=== PATIENT | male | born 1975 ===

== ENCOUNTER 2017-07-03 12:56 | Inpatient (IN) | payer MEDICAID ==
--- NOTE | 2017-07-03 13:41 | C.PDOC ---
History Of Present Illness 41 y/o male presents to the emergency department complaining of requesting detox from heroin. Patient uses IV heroin. Denies any hallucinations, suicidal ideation, or homicidal ideation. Patient last used heroin this morning. Time Seen by Provider: 07/03/17 13:21 Chief Complaint (Nursing): Medical Clearance History Per: Patient History/Exam Limitations: no limitations Onset/Duration Of Symptoms: Days Current Symptoms Are (Timing): Still Present Past Medical History Reviewed: Historical Data, Nursing Documentation, Vital Signs Vital Signs: Last Vital Signs Temp 98.6 F 07/03/17 21:06 Pulse 84 07/03/17 21:06 Resp 18 07/03/17 21:06 BP 115/76 07/03/17 21:06 Pulse Ox 98 07/03/17 21:06 - Medical History Other PMH: Heroin abuse Surgical History: No Surg Hx Family History: States: No Known Family Hx - Social History Hx Alcohol Use: No Hx Substance Use: Yes (IV heroin) - Immunization History Hx Tetanus Toxoid Vaccination: No Hx Influenza Vaccination: No Hx Pneumococcal Vaccination: No Review Of Systems Neurological: Positive for: Other (substance abuse) Psych: Negative for: Suicidal ideation (or homicidal), Other (hallucinations) Physical Exam - Physical Exam Appears: Non-toxic, No Acute Distress Skin: Normal Color, Warm, Dry Head: Atraumatic, Normacephalic Eye(s): bilateral: Normal Inspection, PERRL, EOMI Nose: Normal Oral Mucosa: Moist Neck: Normal ROM, Supple Chest: Symmetrical Cardiovascular: Rhythm Regular Respiratory: Normal Breath Sounds, No Accessory Muscle Use Gastrointestinal/Abdominal: Normal Exam, Soft, No Tenderness Extremity: Bilateral: Atraumatic, Normal Color And Temperature, Normal ROM Neurological/Psych: Oriented x3, Normal Speech ED Course And Treatment - Laboratory Results Result Diagrams: 07/03/17 13:40 07/03/17 13:40 O2 Sat by Pulse Oximetry: 98 (RA) Pulse Ox Interpretation: Normal Medical Decision Making Medical Decision Making: Initial Impression: Substance abuse Time: 13:21 Initial Plan: Alcohol serum Urine drug screen CMP CBC Urinalysis Will 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 Otherwise labs are wnl. 14:53 Spoke with crisis, patient will be admitted inpatient to Dr. Carlos for detox. Disposition Discussed With : Romie Carlos Counseled Patient/Family Regarding: Studies Performed, Diagnosis - Disposition Disposition: HOSPITALIZED Disposition Time: 14:54 Condition: FAIR Forms: [facility] (Slovak) - Clinical Impression Clinical Impression: Drug abuse - Scribe Statement The provider has reviewed the documentation as recorded by the Scribe (Emma Sorto) Provider Attestation: All medical record entries made by the Scribe were at my direction and personally dictated by me. I have reviewed the chart and agree that the record accurately reflects my personal performance of the history, physical exam, medical decision making, and the department course for this patient. I have also personally directed, reviewed, and agree with the discharge instructions and disposition.
[2017-07-03 13:47] LABS: BASO # 0.1 K/uL (0.0-0.2); BASO % 1.1 % (0.0-2.0); EOS % 0.1 % (0.0-4.0); LYMPH # 1.2 K/uL (1.0-4.3); LYMPH % 17.8 % (20.0-40.0); MEAN CORPUSCULAR HEMOGLOBIN 29.8 pg (27.0-31.0); MEAN CORPUSCULAR HGB CONC 34.3 g/dL (33.0-37.0); MEAN PLATELET VOLUME 8.3 fL (7.2-11.7); MONO # 0.5 K/uL (0.0-0.8); MONO % 6.6 % (0.0-10.0); NEUT # 5.1 K/uL (1.8-7.0); NEUT % 74.4 % (50.0-75.0); NRBC % 0.1 % (0.0-2.0); RBC 4.71 Mil/uL (4.40-5.90); RED CELL DISTRIBUTION WIDTH 14.3 % (11.5-14.5); WHITE BLOOD COUNT 6.9 K/uL (4.8-10.8)
[2017-07-03 13:58] LABS: ALB/GLOB RATIO 0.9 (1.0-2.1); ALBUMIN 4.2 g/dL (3.5-5.0); ALT/SGPT 128 U/L (21-72); AST/SGOT 142 U/L (17-59); BLOOD UREA NITROGEN 10 mg/dL (9-20); CALCIUM 9.5 mg/dl (8.6-10.4); GFR AFRICAN-AMERICAN > 60; GFR NON-AFRICAN AMERICAN > 60
[2017-07-03 14:07] LABS: URINE BACTERIA RARE (<OCC); URINE BILIRUBIN 1+ (NEGATIVE); URINE BLOOD NEGATIVE (NEGATIVE); URINE CLARITY Hazy (Clear); URINE COLOR Amber (YELLOW); URINE GLUCOSE (UA) NORMAL (Normal); URINE LEUKOCYTE ESTERASE NEG Leu/uL (Negative); URINE PROTEIN 1+ mg/dL (NEGATIVE)
[2017-07-03 14:10] LABS: BARBITURATES, UR NEGATIVE (NEGATIVE); PHENCYCLIDINE, UR NEGATIVE (NEGATIVE)
[2017-07-03 14:27] LABS: BENZODIAZEPINES, UR POSITIVE (NEGATIVE); OPIATES, UR POSITIVE (NEGATIVE)
--- NOTE | 2017-07-03 15:33 | PCM.BM ---
<Eusebia Vega - Last Filed: 07/03/17 15:33> Treatment Plan Problems - Problems identified on initial assessmt potiential for opiate withdrawal Date Initiated: 07/03/17 Time Initiated: 15:33 Assessment reference: NA Status: Active - Milieu Protocol Maintain good personal hygiene: daily Encourage regular showers, daily Remind patient to perform daily oral care, daily Assist patient to perform ADL's Maintain personal safety: every shift Educate patient to report safety concerns to staff, every shift Monitor environment for contraband/sharps Medication safety: Monitor for expected outcome, potential side effects: every shift, Assess barriers to learning: every shift, Assess readiness for medication education: every shift <Romie Carlos - Last Filed: 07/04/17 17:56> - Diagnosis (1) Opioid use disorder, severe, dependence Status: Acute Interventions: 07/04/17 17:56 * Assess 7x/week regarding severity of withdrawal * Educate regarding risks, benefits, side effects and alternatives of medications * Use Motivational Interviewing for abstinence * Use CBT for relapse prevention * Medication management for withdrawal symptoms * Encourage medication assisted treatment *
[2017-07-03] MEDS ORDERED: Aluminum Hydroxide/Magnesium Hydroxide Susp (30 mL) PO PRN (16:48)
--- NOTE | 2017-07-04 13:32 | PCM.PSYCH ---
Initial Psychiatric Evaluation - Initial Psychiatric Evaluation Type of Admission: Voluntary Legal Status: Capacity Chief Complaint (in patient's own words): "I'm here for detox" History of Present Illness and Precipitating Events: HPI: 41 y.o. M, single, with 2 children (9 yo & 10 yo), unemployed, on medicaid, currently living alone in a rented apartment, who presented to the ED last night requesting detox for heroin. He reports a >20 year history of heroin use. Patient estimates his use at 10 bags IV/day. Last used yesterday morning. His longest period of sobriety was 5 years and his most recent relapse occurred 15 months ago. Patient also admits to using Xanax on occasion (1 bar/use) and tobacco (1ppd). Denies use of marijuana, PCP, LSD, MDMA or other substances. At this time, patient reports feelings of sweats, chills, and occasional abdominal pain. Denies any nausea, vomiting, diarrhea, rhinorrhea, congestion or tremors. Denies any prior seizure, or overdoses. He does not have any specific plan following discharge but is interested in a long-term work program. Detox Hx: 2x before in [place] [facility] Hx: 1x before in [place] [facility] Hx: "Hepatitis" Medications: Denies Psych Hx: Anxiety and depression Fam Hx: denies Legal: denies Current Medications: Active Medications Generic Name Dose Route Start Last Admin Trade Name Freq PRN Reason Stop Dose Admin Al Hydrox/Mg Hydrox/Simethicone 30 ml 07/03/17 16:48 Maalox 30 Ml PO TID PRN Indigestion / Heartburn Clonidine HCl 0.1 mg 07/03/17 16:48 Catapres PO Q8 PRN COWS Score More or Equal to 5 Hydroxyzine HCl 50 mg 07/03/17 16:50 07/04/17 04:32 Atarax PO 50 mg Q6H PRN Administration Anxiety Ibuprofen 600 mg 07/03/17 16:50 Motrin Tab PO Q6H PRN Pain, moderate (4-7) Loperamide HCl 2 mg 07/03/17 16:48 Imodium PO Q8 PRN Diarrhea Methadone HCl 10 mg 07/05/17 10:00 Methadone PO 07/09/17 09:59 Q24H ERIKA Taper Nicotine 1 patch 03/07/18 10:15 07/04/17 10:59 Nicoderm Cq TD 1 patch DAILY ERIKA Administration Ondansetron HCl 4 mg 07/03/17 16:48 Zofran Tab PO Q8 PRN Nausea/Vomiting Trazodone HCl 100 mg 07/03/17 16:50 07/03/17 21:43 Desyrel PO 100 mg HS PRN Administration Insomnia Past Psychiatric History - Past Psychiatric History History of ETOH/Drug Use: (+) heroin, xanax Pertinent Medical Hx (Current Medical&Sleep Prob, Allergies): Allergies Allergy/AdvReac Type Severity Reaction Status Date / Time No Known Allergies Allergy Unverified 07/03/17 13:19 No Known Home Med 07/03/17 Review of Systems - Constitutional Constitutional: Chills, Sweats - EENT Nose/Mouth/Throat: absent: Nasal Congestion, Nasal Discharge - Gastrointestinal Gastrointestinal: Abdominal Pain - Neurological Neurological: absent: Syncope, Tremor, Weakness - Psychiatric Psychiatric: absent: Hallucinations, Homicidal Ideation, Suicidal Ideation Mental Status Examination - Affect Affect: Broad - Motor Activity Motor Activity: Calm - Reliability in Providing Information Reliability in Providing Information: Fair - Speech Speech: Organized - Mood Mood: Neutral - Formal Thought Process Formal Thought Process: No Impairment - Obsessions/Compulsions Obsessions: No Compulsions: No - Cognitive Functions Orientation: Person, Place, Situation, Time Attention/Concentration: Attentive Estimate of Intelligence: Average Judgement: Intact, as evidence by: Insight regarding need for hospitalization Memory: Recent intact, as evidence by: Ability to recall events of the day, Remote intact, as evidenced by: Abilit to recall sig. life events - Risk Risk: Seizure, Withdrawal, Diminished functioning - Strength & Assets Inventory Strength & Assets Inventory: Employment history - Limitations Limitations: Living alone DSM 5 DX - DSM 5 DSM 5 Diagnosis: Opioid use d/o Opioid withdrawal - Recommended/Plan of Treatment Treatment Recommendations and Plan of Treatment: Plan for EVELYN intake Methadone detox Gabapentin for augmentation As needed medications All risks, benefits and alternatives of the meds discussed, and the pt agreed and understood. Attend groups and activities Supportive therapy and psychoeducation MT for abstinence CBT for relapse prevention Encourage MAT Refer to rehab or IOP, and self-help groups Smoking cessation with MT Nicotine patch 34 min Projected ELOS: 4-5 days Prognosis: Good with treatment Discharge Plan and Discharge Criteria: Rehab and MAT - Smoking Cessation Smoking Cessation Initiated: Yes
--- NOTE | 2017-07-05 11:57 | PCM.PYCHPN ---
Psychiatric Progress Note - Psychiatric Progress Note Patient seen today, length of contact: 16 min Patient Chief Complaint: "I couldn't sleep well" Problems Identified/Issues Discussed: The pt is seen, chart reviewed, case discussed with staff. The pt is compliant with medications and reports no side-effects. Symptoms are improving but needs more time to stabilize. After care discussed, support and psychoeducation given. Medication Change: Yes (detox changes daily, add seroquel) Medical Record Reviewed: Yes Mental Status Examination - Cognitive Function Orientation: Person, Place, Situation, Time Memory: Intact Attention: WNL Concentration: WNL Association: WNL Fund of Knowledge: WNL - Mood Mood: Neutral - Affect Affect: Constricted - Speech Speech: Appropriate - Formal Thought Process Formal Thought Process: No Impairment - Suicidal Ideation Suicidal Ideation: No - Homicidal Ideation Homicidal Ideation: No Goal/Treatment Plan - Goal/Treatment Plan Need for Continued Stay: Discharge may exacerbated symptoms, Severe functional impairment Progress Toward Problem(s) and Goals/Treatment Plan: Methadone detox Gabapentin for augmentation As needed medications All risks, benefits and alternatives of the meds discussed, and the pt agreed and understood. Attend groups and activities Supportive therapy and psychoeducation MT for abstinence CBT for relapse prevention Encourage MAT Refer to rehab or IOP, and self-help groups Smoking cessation with MT Nicotine patch
[2017-07-05 12:10] LABS: HEPATITIS B SURFACE AG Negative (NEGATIVE)
[2017-07-05 12:16] LABS: HEPATITIS A IGM NEGATIVE (NEGATIVE); HEPATITIS B CORE AB NEGATIVE (NEGATIVE)
[2017-07-05 13:52] LABS: HEPATITIS C ANTIBODY REACTIVE (NEGATIVE)
--- NOTE | 2017-07-06 12:14 | PCM.PYCHPN ---
Psychiatric Progress Note - Psychiatric Progress Note Patient seen today, length of contact: 16 min Patient Chief Complaint: "I am OK" Problems Identified/Issues Discussed: The pt is seen, chart reviewed, case discussed with staff. Support given, CBT and VA used briefly No new symptoms reported, improving slowly and needs more time No SEs from medications, risks discussed. After care discussed Hep C discussed, Hep B vax recommended Medication Change: Yes (detox changes daily, add seroquel) Medical Record Reviewed: Yes Mental Status Examination - Cognitive Function Orientation: Person, Place, Situation, Time Memory: Intact Attention: WNL Concentration: WNL Association: WNL Fund of Knowledge: WNL - Mood Mood: Neutral - Affect Affect: Constricted - Speech Speech: Appropriate - Formal Thought Process Formal Thought Process: No Impairment - Suicidal Ideation Suicidal Ideation: No - Homicidal Ideation Homicidal Ideation: No Goal/Treatment Plan - Goal/Treatment Plan Need for Continued Stay: Discharge may exacerbated symptoms, Severe functional impairment Progress Toward Problem(s) and Goals/Treatment Plan: Methadone detox Gabapentin for augmentation As needed medications All risks, benefits and alternatives of the meds discussed, and the pt agreed and understood. Attend groups and activities Supportive therapy and psychoeducation VA for abstinence CBT for relapse prevention Encourage MAT Refer to rehab or IOP, and self-help groups Smoking cessation with VA Nicotine patch Estimated Date of D/C: 07/09/17
[2017-07-08 17:12] VITALS: RESP 18
--- NOTE | 2017-07-08 23:43 | PCM.PYCHPN ---
Psychiatric Progress Note - Psychiatric Progress Note Patient seen today, length of contact: 16 min Patient Chief Complaint: I FEEL GOOD I WANT TO GO TO THE [facility] IN [place] Problems Identified/Issues Discussed: [employer] MANAGEMENT OF [employer]- [employer] Medical Problems: NOTHING ACUTE Diagnostic Results: REVIEWED Medication Change: Yes (METHADONE TAPER) Medical Record Reviewed: Yes Mental Status Examination - Cognitive Function Orientation: Person, Place, Situation, Time Memory: Intact Attention: WNL Association: WN Fund of Knowledge: WNL - Mood Mood: Neutral - Affect Affect: Blunted - Speech Speech: Appropriate - Formal Thought Process Formal Thought Process: No Impairment - Suicidal Ideation Suicidal Ideation: No - Homicidal Ideation Homicidal Ideation: No Goal/Treatment Plan - Goal/Treatment Plan Need for Continued Stay: Discharge may exacerbated symptoms, Severe functional impairment Progress Toward Problem(s) and Goals/Treatment Plan: OPIOID WITHDRAWAL METHADONE TAPER OPIOID USE DISORDER SEVERE [facility] CBT GROUP MILIEU AND RECREATIONAL THERAPY SUPPORTIVE PSYCHOTHERAPY Estimated Date of D/C: 07/09/17 - Smoking Cessation Smoking Cessation Initiated: No
--- NOTE | 2017-07-08 23:50 | PCM.PYCHPN ---
Psychiatric Progress Note - Psychiatric Progress Note Patient seen today, length of contact: 16 min Patient Chief Complaint: I WANT TO STAY [place] FOR MYSELF Problems Identified/Issues Discussed: POST ACUTE WITHDRAWAL SYNDROME Medical Problems: NOTHING ACUTE Diagnostic Results: REVIEWED Medical Record Reviewed: Yes Mental Status Examination - Cognitive Function Orientation: Person, Place, Situation, Time Memory: Intact Attention: WNL Concentration: WNL Association: WNL Fund of Knowledge: WNL - Mood Mood: Neutral - Affect Affect: Blunted - Speech Speech: Appropriate - Formal Thought Process Formal Thought Process: No Impairment - Suicidal Ideation Suicidal Ideation: No - Homicidal Ideation Homicidal Ideation: No Goal/Treatment Plan - Goal/Treatment Plan Need for Continued Stay: Discharge may exacerbated symptoms, Severe functional impairment Progress Toward Problem(s) and Goals/Treatment Plan: OPIOID WITHDRAWAL METHADONE TAPER OPIOID USE DISORDER [facility] [place] CBT GROUP MILIEU RECREATIONAL THERAPY SUPPORTIVE PSYCHOTHERAPY Estimated Date of D/C: 07/09/17 - Smoking Cessation Smoking Cessation Initiated: No
--- NOTE | 2017-07-09 08:49 | PCM.PYCHDC ---
Mental Status Examination - Mental Status Examination Orientation: Person, Place, Situation, Time Memory: Intact Mood: Neutral Affect: Broad Speech: Appropriate Attention: WNL Concentration: WNL Language: Word Retrieval Association: WNL Fund of Knowledge: WNL Formal Thought Process: No Impairment Suicidal Ideation: No Current Homicidal Ideation?: No Discharge Summary - Discharge Note Reason for Hospitalization: Detox Consultations:: List each consultation separately and include: 1. Reason for request. 2. Findings. 3. Follow-up Summary of Hospital Course include:: 1. Description of specific treatment plan utilized for patients during their course of treatmen. 2. Summarize the time- course for resolution of acute symptoms and/or regressed behaviors. 3. Describe issues identified and worked on during hospitalization. 4. Describe medication utilized. 5. Describe medical problems identified and treated. 6. Reassessment of suicide risk Summary of Hospital Course: On admission 41 y.o. M, single, with 2 children (9 yo & 10 yo), unemployed, on medicaid, currently living alone in a rented apartment, who presented to the ED last night requesting detox for heroin. He reports a >20 year history of heroin use. Patient estimates his use at 10 bags IV/day. Last used yesterday morning. His longest period of sobriety was 5 years and his most recent relapse occurred 15 months ago. Patient also admits to using Xanax on occasion (1 bar/use) and tobacco (1ppd). Denies use of marijuana, PCP, LSD, MDMA or other substances. At this time, patient reports feelings of sweats, chills, and occasional abdominal pain. Denies any nausea, vomiting, diarrhea, rhinorrhea, congestion or tremors. Denies any prior seizure, or overdoses. He does not have any specific plan following discharge but is interested in a long- term work program. Hospital course: The pt was admitted and started on treatment with psychotherapy, support, psychoeducation and medications. NC and CBT used. The pt attended groups and activities, as well as milieu therapy. All the risks and benefits of medications are discussed and the patient understood and agreed. The pt improved with the treatments provided. After care discussed with the patient. He went to [facility] in [place]. - Diagnosis (1) Opioid use disorder, severe, dependence Status: Acute - Final Diagnosis (DSM 5) Condition upon Discharge: IMPROVED DSM 5: Opioid use disorder Opioid withdrawal Disposition: REHAB FACILITY/REHAB UNIT Follow-up Treatment Plan: Follow after care plan as discussed. Use relapse prevention skills Return to ER or call 911 if suicidal, homicidal or symptoms relapse. Stay away from stress, alcohol and drugs. See primary doctor regularly and get labs.
[2017-07-09 09:35] VITALS: BP 102/72; PULSE 88; TEMP 98.4; O2SAT 97
== END 2017-07-09 11:30 | disposition home or self-care (01) | DRG 745 ==
LOC: C.ER 12:56 → C.7D 14:53
PROVIDERS: ADMIT Psychiatry & Neurology Psychiatry; ATTEND Psychiatry & Neurology Psychiatry
PROC: HZ2ZZZZ Detoxification Services for Substance Abuse Treatment (ICD-10-PCS; principal; 2017-07-03)
PROC: HZ59ZZZ Individual Psychotherapy for Substance Abuse Treatment, Supportive (ICD-10-PCS; 2017-07-03)
PROC: HZ46ZZZ Group Counseling for Substance Abuse Treatment, Psychoeducation (ICD-10-PCS; 2017-07-03)
PROC: HZ90ZZZ Pharmacotherapy for Substance Abuse Treatment, Nicotine Replacement (ICD-10-PCS; 2017-07-03)
DX: F11.23 Opioid dependence with withdrawal (principal); F17.210 Nicotine dependence, cigarettes, uncomplicated

== ENCOUNTER 2017-09-11 17:59 | Emergency (ER) | payer MEDICAID ==
[2017-09-11 18:32] VITALS: BP 151/107; PULSE 115; RESP 20; TEMP 98.2; O2SAT 96
--- NOTE | 2017-09-11 18:39 | C.PDOC ---
History Of Present Illness 42 y/o male presents to ED requesting heroin detox. Patient reports last used earlier this morning and currently denies SI/HI or any physical complaints at this time. Time Seen by Provider: 09/11/17 18:33 Chief Complaint (Nursing): Substance Abuse History Per: Patient History/Exam Limitations: no limitations Onset/Duration Of Symptoms: Days Current Symptoms Are (Timing): Still Present Suicide/Self Injury Attempted (Context): None Modifying Factor(s): None Past Medical History Reviewed: Historical Data, Nursing Documentation, Vital Signs Vital Signs: Last Vital Signs Temp 98.2 F 09/11/17 18:31 Pulse 115 H 09/11/17 18:31 Resp 20 09/11/17 18:31 BP 151/107 H 09/11/17 18:31 Pulse Ox 96 09/11/17 18:51 - Medical History PMH: No Chronic Diseases Surgical History: No Surg Hx - [facility] Procedures DETOXIFICATION SERVICES FOR SUBSTANCE ABUSE TREATMENT (07/03/17) GROUP INVENTORY SPECIALIST MANAGER FOR SUBSTANCE ABUSE TREATMENT, PSYCHOEDUCATION (07/03/17) INDIV PSYCHOTHERAPY FOR SUBSTANCE ABUSE TREATMENT, SUPPORT (07/03/17) PHARMACOTHERAPY FOR SUBSTANCE ABUSE, NICOTINE REPLACE (07/03/17) Family History: States: No Known Family Hx - Social History Hx Alcohol Use: No Hx Substance Use: Yes - Immunization History Hx Tetanus Toxoid Vaccination: No Hx Influenza Vaccination: Yes Hx Pneumococcal Vaccination: No Review Of Systems Constitutional: Negative for: Fever, Chills Cardiovascular: Negative for: Chest Pain Respiratory: Negative for: Shortness of Breath Gastrointestinal: Negative for: Nausea, Vomiting Skin: Negative for: Rash Psych: Negative for: Anxiety, Suicidal ideation Physical Exam - Physical Exam Appears: Non-toxic, No Acute Distress Skin: Warm, Dry, No Rash Head: Atraumatic, Normacephalic Eye(s): bilateral: Normal Inspection Oral Mucosa: Moist Neck: Normal ROM, Supple Cardiovascular: Rhythm Regular Respiratory: Normal Breath Sounds, No Rales, No Rhonchi, No Wheezing Gastrointestinal/Abdominal: Soft, No Tenderness, No Guarding, No Rebound Extremity: Normal ROM, Capillary Refill (<2 seconds) Neurological/Psych: Oriented x3, Normal Speech, Normal Cognition ED Course And Treatment O2 Sat by Pulse Oximetry: 96 (RA) Pulse Ox Interpretation: Normal Medical Decision Making Medical Decision Making: No detox beds available pt discharged with outpatient list of detox services. Disposition - Disposition Referrals: [facility] [place] [Outside] [facility] [Outside] Disposition: HOME/ ROUTINE Disposition Time: 18:34 Condition: STABLE Additional Instructions: please call ahead for detox bed. return to er with worsening symptoms or concerns. Forms: [employer] (Cypriot) - Clinical Impression Clinical Impression: Drug abuse - Scribe Statement The provider has reviewed the documentation as recorded by the Scribmilton Leiva All medical record entries made by the Jhonyibmilton were at my direction and personally dictated by me. I have reviewed the chart and agree that the record accurately reflects my personal performance of the history, physical exam, medical decision making, and the department course for this patient. I have also personally directed, reviewed, and agree with the discharge instructions and disposition.
== END 2017-09-11 19:07 | disposition home or self-care (01) ==
LOC: C.ER 17:59
DX: F11.10 Opioid abuse, uncomplicated (principal)

== ENCOUNTER 2017-09-12 07:36 | Emergency (ER) | payer MEDICAID ==
[2017-09-12 07:53] VITALS: BP 141/91; PULSE 97; RESP 20; TEMP 98.2; O2SAT 96
--- NOTE | 2017-09-12 08:26 | C.PDOC ---
History Of Present Illness Patient came requesting Detox from heroin. Patient sts he was admitted to Detox here 1 month ago and was then referred to [facility] rehab. Patient sts he relapsed 2 weeks ago and was expelled from Rehab. Patient sts he is using 4 bags per day for the past 2 weeks. Patient denies any other complains, denies suicidal/homicidal ideations. Time Seen by Provider: 09/12/17 07:58 Chief Complaint (Nursing): Substance Abuse Past Medical History Reviewed: Historical Data, Nursing Documentation, Vital Signs Vital Signs: Last Vital Signs Temp 98.2 F 09/12/17 07:49 Pulse 97 H 09/12/17 07:49 Resp 20 09/12/17 07:49 BP 141/91 H 09/12/17 07:49 Pulse Ox 96 09/12/17 08:26 - Medical History PMH: Denies: Diabetes, Hepatitis, HIV, HTN, Seizures, Sexually Transmitted Disease - [facility] Procedures DETOXIFICATION SERVICES FOR SUBSTANCE ABUSE TREATMENT (07/03/17) GROUP ROAD PASSENGER FIRER FOR SUBSTANCE ABUSE TREATMENT, PSYCHOEDUCATION (07/03/17) INDIV PSYCHOTHERAPY FOR SUBSTANCE ABUSE TREATMENT, SUPPORT (07/03/17) PHARMACOTHERAPY FOR SUBSTANCE ABUSE, NICOTINE REPLACE (07/03/17) Family History: States: No Known Family Hx - Social History Hx Alcohol Use: No Hx Substance Use: Yes - Immunization History Hx Tetanus Toxoid Vaccination: No Hx Influenza Vaccination: Yes Hx Pneumococcal Vaccination: No Physical Exam - Physical Exam Appears: Well, Non-toxic Skin: Normal Color Head: Atraumatic, Normacephalic Eye(s): bilateral: Normal Inspection Neck: Normal ROM Chest: Symmetrical, No Tenderness Cardiovascular: Rhythm Regular Back: Normal Inspection Extremity: Normal ROM, No Tenderness Neurological/Psych: Oriented x3, Normal Speech, Normal Cognition ED Course And Treatment O2 Sat by Pulse Oximetry: 96 Progress Note: Patient was seen by Detox coordinator Akua who discussed case with . As per patient is not a candidate for Detox at this time. Referral material for outpatient detox and rehab fascilities were given to the patient. Patient agreed with the plan of discharge and referral. Disposition - Disposition Disposition: HOME/ ROUTINE Disposition Time: 08:25 Condition: STABLE Additional Instructions: Follow with outpatient detox or rehab program as instructed. Return to ED if feel worse. Instructions: Drug Abuse and Drug Addiction (DC) Forms: [employer] (Colombian) - Clinical Impression Clinical Impression: Drug dependence
== END 2017-09-12 08:33 | disposition home or self-care (01) ==
LOC: C.ER 07:36
DX: F19.20 Other psychoactive substance dependence, uncomplicated (principal)

== ENCOUNTER 2017-09-19 10:55 | Inpatient (IN) | payer MEDICAID ==
[2017-09-19 11:56] LABS: BASO # 0.1 K/uL (0.0-0.2); BASO % 1.2 % (0.0-2.0); EOS # 0.1 K/uL (0.0-0.7); EOS % 1.2 % (0.0-4.0); LYMPH # 1.9 K/uL (1.0-4.3); LYMPH % 23.2 % (20.0-40.0); MEAN CELL VOLUME 87.3 fL (80.0-94.0); MEAN CORPUSCULAR HEMOGLOBIN 30.4 pg (27.0-31.0); MEAN CORPUSCULAR HGB CONC 34.8 g/dL (33.0-37.0); MEAN PLATELET VOLUME 8.4 fL (7.2-11.7); MONO # 0.7 K/uL (0.0-0.8); MONO % 8.5 % (0.0-10.0); NEUT # 5.5 K/uL (1.8-7.0); NEUT % 65.9 % (50.0-75.0); NRBC % 0.2 % (0.0-2.0); RBC 4.93 Mil/uL (4.40-5.90); WHITE BLOOD COUNT 8.3 K/uL (4.8-10.8)
--- NOTE | 2017-09-19 12:00 | C.PDOC ---
History Of Present Illness 42 y/o male presents to the ER requesting detox from heroin. Patient states that he uses Heroin IV and he last use was last night. Patient states that he wants to harm himself. Otherwise, patient denies having homicidal ideation and active physical complaints. Time Seen by Provider: 09/19/17 11:08 Chief Complaint (Nursing): Substance Abuse History Per: Patient History/Exam Limitations: no limitations Onset/Duration Of Symptoms: Days Severity: Moderate Past Medical History Reviewed: Historical Data, Nursing Documentation, Vital Signs Vital Signs: Last Vital Signs Temp 98.5 F 09/19/17 11:01 Pulse 123 H 09/19/17 11:01 Resp 20 09/19/17 11:01 BP 157/84 H 09/19/17 11:01 Pulse Ox 99 09/19/17 14:29 - Medical History PMH: Denies: Diabetes, Hepatitis, HIV, HTN, Seizures, Sexually Transmitted Disease Surgical History: No Surg Hx - [facility] DETOXIFICATION SERVICES FOR SUBSTANCE ABUSE TREATMENT (07/03/17) 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 Constitutional: Negative for: Fever, Chills Psych: Positive for: Suicidal ideation Physical Exam - Physical Exam Appears: No Acute Distress Skin: Normal Color, Warm, Dry Head: Atraumatic, Normacephalic Eye(s): bilateral: Normal Inspection Nose: Normal Oral Mucosa: Moist Neck: Supple Chest: Symmetrical Cardiovascular: Rhythm Regular Respiratory: Normal Breath Sounds, No Rales, No Rhonchi, No Wheezing Gastrointestinal/Abdominal: Normal Exam, Soft, No Tenderness Neurological/Psych: Oriented x3, Normal Speech ED Course And Treatment - Laboratory Results Result Diagrams: 09/19/17 11:46 09/19/17 11:46 Lab Interpretation: Normal O2 Sat by Pulse Oximetry: 99 (RA) Pulse Ox Interpretation: Normal Progress Note: 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 admission to Dr Villagran Reassessment Condition: Unchanged - Physician Consult Information Physician Contacted: Garfield Villagran Medical Decision Making Medical Decision Making: Plan: --Labs --UA --1:1 Observation Disposition Discussed With : Garfield Villagran Doctor Will See Patient In The: Hospital - Disposition Disposition: HOSPITALIZED Disposition Time: 12:35 Condition: STABLE Instructions: Depression Forms: [facility] (Yi) - POA Present On Arrival: None - Clinical Impression Clinical Impression: Opioid use disorder, severe, dependence, Depression - 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 - Scribe Statement The provider has reviewed the documentation as recorded by the Sarath Loco Provider Attestation All medical record entries made by the Jhonyibe were at my direction and personally dictated by me. I have reviewed the chart and agree that the record accurately reflects my personal performance of the history, physical exam, medical decision making, and the department course for this patient. I have also personally directed, reviewed, and agree with the discharge instructions and disposition. Decision To Admit - Pt Status Changed To: Hospital Disposition Of: Inpatient - Admit Certification Admit to Inpatient:: After my assessment, the patient will require hospitalization for at least two midnights. This is because of the severity of symptoms shown, intensity of services needed, and/or the medical risk in this patient being treated as an outpatient. - InPatient: Physician Admission Certification: I certify that this patient requires 2 or more midnights of care for the following reason:: Depression. Opioid abuse - . Bed Request Type: Psychiatry Admitting Physician: Garfield Villagran Patient Diagnosis: Opioid use disorder, severe, dependence, Depression
[2017-09-19 12:08] LABS: URINE BILIRUBIN NEGATIVE (NEGATIVE); URINE BLOOD NEGATIVE (NEGATIVE); URINE CLARITY Clear (Clear); URINE COLOR Yellow (YELLOW); URINE GLUCOSE (UA) NORMAL (Normal); URINE LEUKOCYTE ESTERASE NEG Leu/uL (Negative); URINE PROTEIN NEGATIVE (NEGATIVE); URINE UROBILINOGEN NORMAL mg/dL (0.2-1.0)
[2017-09-19 12:19] LABS: ALB/GLOB RATIO 0.9 (1.0-2.1); ALBUMIN 4.1 g/dL (3.5-5.0); ALT/SGPT 124 U/L (21-72); AST/SGOT 83 U/L (17-59); BLOOD UREA NITROGEN 13 mg/dL (9-20); CALCIUM 9.5 mg/dl (8.6-10.4); GFR AFRICAN-AMERICAN > 60; GFR NON-AFRICAN AMERICAN > 60
[2017-09-19 13:22] LABS: BARBITURATES, UR NEGATIVE (NEGATIVE); PHENCYCLIDINE, UR NEGATIVE (NEGATIVE)
[2017-09-19 13:42] LABS: BENZODIAZEPINES, UR POSITIVE (NEGATIVE); OPIATES, UR POSITIVE (NEGATIVE)
[2017-09-19] MEDS ORDERED: Aluminum Hydroxide/Magnesium Hydroxide Susp (30 mL) PO PRN (16:38)
--- NOTE | 2017-09-19 20:31 | PCM.BM ---
Treatment Plan Problems - Problems identified on initial assessmt anxiety Date Initiated: 09/19/17 Time Initiated: Date resolved: 09/19/17 Assessment reference: NA Status: Active Depression Date Initiated: 09/19/17 Time Initiated: Date resolved: 09/19/17 Assessment reference: NA Status: Active Treatment assets and liabiliti Patient Assests: cooperative, insightful, motivated, negotiates basic needs Patient Liabilities: live alone, financial problems, substance abuse - Milieu Protocol Maintain good personal hygiene: daily Encourage regular showers, daily Remind patient to perform daily oral care, daily Assist patient to perform ADL's Conduct patient checks and document Observation sheet: Q15 minutes Maintain personal safety: every shift Educate patient to report safety concerns to staff, every shift Monitor environment for contraband/sharps Medication safety: Monitor for expected outcome, potential side effects: every shift, Assess barriers to learning: every shift, Assess readiness for medication education: every shift
--- NOTE | 2017-09-19 20:39 | PCM.BM ---
<Gisselle Lloyd - Last Filed: 09/19/17 20:39> Treatment Plan Problems - Problems identified on initial assessmt anxiety Date Initiated: 09/19/17 Time Initiated: Date resolved: 09/19/17 Assessment reference: NA Status: Active Depression Date Initiated: 09/19/17 Time Initiated: Date resolved: 09/19/17 Assessment reference: NA Status: Active Treatment assets and liabiliti Patient Assests: cooperative, insightful, motivated, negotiates basic needs Patient Liabilities: live alone, financial problems, substance abuse - Milieu Protocol Maintain good personal hygiene: daily Encourage regular showers, every shift Remind patient to perform daily oral care, every shift Assist patient to perform ADL's Conduct patient checks and document Observation sheet: Q15 minutes (For safety) Maintain personal safety: every shift Educate patient to report safety concerns to staff, every shift Monitor environment for contraband/sharps Medication safety: Monitor for expected outcome, potential side effects: every shift, Assess barriers to learning: every shift, Assess readiness for medication education: every shift <Garfield Villagran - Last Filed: 09/21/17 11:09> - Diagnosis (1) Depression Status: Acute Interventions: 09/21/17 11:09 * Assess/adjust medications daily and /or as needed * See patient on an individual basis 7x/week to assess symptoms of depression * Monitor for side effects & effectiveness of medications * (2) Opioid use disorder, severe, dependence Status: Acute Interventions: 09/21/17 11:10 * Assess 7x/week regarding severity of withdrawal * Educate regarding risks, benefits, side effects and alternatives of medications * Use Motivational Interviewing for abstinence * Use CBT for relapse prevention * Medication management for withdrawal symptoms * Encourage medication assisted treatment * <Isadora De León - Last Filed: 09/21/17 11:41> Family Contact Family involvement: Famliy/SO not involved - Goals for Treatment Patient goals for treatment: "I want to go to rehab." Discharge/Continuing Care - Education Needs Education Needs: Patient Medication, Patient Coping Skills, Patient Placement options, Patient Community resources - Discharge Discharge Criteria: Tolerates medication w/o severe side effects, No longer exhibiting s/s of withdrawal, Reduction of target symptoms Discharge to:: Substance Abuse Rehab - Treatment Team Participation Discussed with Family/SO: No Was Patient/Family/SO present at Treatment Team Meeting: Yes
--- NOTE | 2017-09-20 09:39 | PCM.PSYCH ---
Initial Psychiatric Evaluation - Initial Psychiatric Evaluation Type of Admission: Voluntary Legal Status: Capacity Chief Complaint (in patient's own words): I was feeling depressed and suicidal.' History of Present Illness and Precipitating Events: Patient is a 42 year old male presenting to the ED requesting detox from heroin and suicidal ideations. Patient states that he uses Heroin IV and his last use was Sunday. He states he brought himself to the hospital because he wants to clean up his mess with heroin use. He also indicates he has been feeling suicidal for the past two days, " I was thinking I want to hurt himself." Patient normally has 6- 7 bags of heroin a day via IV. Patient currently has withdrawal symptoms including nausea, shaky feeling, fatigue, and joint pain. Patient states he feels depressed complaining of decreased sleep, interests, feeling guilty for his abuse problems, and decreased energy. Patient denies any auditory or visual hallucinations or any paranoia. Patient was in the detox at [facility] 2 months ago. After he was discharged, he went to [facility] in [place]. He stopped following up there because he hated being in a hospital setting. He ended up relapsing and started heroin use. Patient states he has the motivation to get better and that is why he came on his own to the hospital. Past Medical History: Denies Past Surgical History: Denies Allergies: Denies Current Medications: Active Medications Generic Name Dose Route Start Last Admin Trade Name Freq PRN Reason Stop Dose Admin Al Hydrox/Mg Hydrox/Simethicone 30 ml 09/19/17 16:38 Maalox 30 Ml PO TID PRN Indigestion / Heartburn Clonidine HCl 0.1 mg 09/19/17 16:38 Catapres PO Q8 PRN COWS Score More or Equal to 5 Hydroxyzine HCl 25 mg 09/19/17 16:39 Atarax PO Q6 PRN Anxiety Loperamide HCl 2 mg 09/19/17 16:38 Imodium PO Q8 PRN Diarrhea Ondansetron HCl 4 mg 09/19/17 16:38 Zofran Tab PO Q8 PRN Nausea/Vomiting Pneumococcal Polyvalent Vaccine 0.5 ml 09/22/17 10:00 Pneumovax 23 Vaccine IM 09/22/17 10:01 .ONCE ONE Pseudoephedrine HCl 60 mg 05/23/18 16:38 Sudafed Tab PO QID PRN Nasal/Sinus Congestion Trazodone HCl 50 mg 09/19/17 22:00 09/19/17 21:46 Desyrel PO 50 mg HS ERIKA Administration Past Psychiatric History - Past Psychiatric History Previous Treatment History: Inpatient Pertinent Medical Hx (Current Medical&Sleep Prob, Allergies): Allergies Allergy/AdvReac Type Severity Reaction Status Date / Time No Known Allergies Allergy Verified 09/19/17 11:11 No Known Home Med 07/03/17 Review of Systems - Review of Systems All systems: reviewed and no additional remarkable complaints except - Psychiatric Psychiatric: Anxiety, Irritability, Suicidal Ideation Mental Status Examination - Personal Presentation Personal Presentation: Looks stated age - Affect Affect: Constricted, Depressed - Motor Activity Motor Activity: Calm - Reliability in Providing Information Reliability in Providing Information: Good - Speech Speech: Organized - Mood Mood: Depressed, Anxious - Formal Thought Process Formal Thought Process: No Impairment - Obsessions/Compulsions Obsessions: No Compulsions: No - Cognitive Functions Orientation: Person, Place, Situation, Time Sensorium: Alert Attention/Concentration: Attentive Abstract Thinking: [place] Estimate of Intelligence: Below average Judgement: Imparied, as evidence by: Poor judgement, Imparied, as evidence by: Lack of insight into illness - Risk Risk: Suicidal, Withdrawal, Diminished functioning - Limitations Limitations: Living alone DSM 5 DX - DSM 5 DSM 5 Diagnosis: Major depressive disorder single episode severe without psychotic features Opiate use disorder severe Opiate withdrawal - Recommended/Plan of Treatment Treatment Recommendations and Plan of Treatment: Major depressive disorder single episode severe without psychotic features -CBT -Psychoeducation -Supportive therapy, group therapy, individual therapy -Trazodone 50 mg by mouth daily at bedtime -Celexa 20 mg daily -Hydroxyzine 25 mg by mouth every 6 hours when necessary Opioid use disorder severe -CBT -Psychoeducation -Supportive therapy, individual therapy -Use [place] for abstinence Opioid withdrawal -CBT -Psychoeducation -Supportive therapy, individual therapy -Clonidine when necessary -Methadone taper - Smoking Cessation Smoking Cessation Initiated: No
--- NOTE | 2017-09-21 11:09 | PCM.PYCHPN ---
Psychiatric Progress Note - Psychiatric Progress Note Patient seen today, length of contact: 15 min Patient Chief Complaint: I was feeling depressed and suicidal.' Problems Identified/Issues Discussed: Patient is a 42 year old male presenting to the ED requesting detox from heroin. Patient states that he uses Heroin IV and his last use was Sunday night. Patient states that he wants harm himself on the day he was admitted. Patient was seen and evaluated, chart reviewed and discussed with nurse. Patient reports feeling depressed, complaining of decreased sleep, energy, concentration, and appetite. However, patient does report her mood has been getting better. Denies feeling guilty. Patient denies hearing voices. Patient still reports withdrawal symptoms. At the treatment plan meeting, patient reports desire to go back to [facility] in [place]. Patient graduated from their rehab program back in 2014 and is committed to completing the program again. Patient is motivated to improve his conditions. He is taking medications and denies any side effects. Supportive therapy and psychoeducation were given. Medication Change: Yes Medical Record Reviewed: Yes Mental Status Examination - Cognitive Function Orientation: Person, Place, Situation, Time Memory: Intact Attention: WNL Concentration: Poor Association: WNL Fund of Knowledge: Poor - Mood Mood: Depressed, Anxious - Affect Affect: Constricted, Depressed - Speech Speech: Soft - Formal Thought Process Formal Thought Process: No Impairment - Suicidal Ideation Suicidal Ideation: No - Homicidal Ideation Homicidal Ideation: No Goal/Treatment Plan - Goal/Treatment Plan Need for Continued Stay: Severe depression anxiety, Severe functional impairment Progress Toward Problem(s) and Goals/Treatment Plan: Major depressive disorder single episode severe without psychotic features -CBT -Psychoeducation -Supportive therapy, group therapy, individual therapy -Trazodone 50 mg by mouth daily at bedtime -Celexa 20 mg daily -Hydroxyzine 25 mg by mouth every 6 hours when necessary Opioid use disorder severe -CBT -Psychoeducation -Supportive therapy, individual therapy -Use [place] for abstinence Opioid withdrawal -CBT -Psychoeducation -Supportive therapy, individual therapy -Clonidine when necessary -Methadone taper - Smoking Cessation Smoking Cessation Initiated: No
--- NOTE | 2017-09-22 08:08 | PCM.PYCHPN ---
Psychiatric Progress Note - Psychiatric Progress Note Patient seen today, length of contact: 15 min Patient Chief Complaint: I was feeling better.' Problems Identified/Issues Discussed: Patient is a 42 year old male presenting to the ED requesting detox from heroin. Patient states that he uses Heroin IV and his last use was Sunday night. Patient states that he wants harm himself on the day he was admitted. Patient was seen and evaluated, chart reviewed and discussed with nurse. Patient reports feeling depressed, complaining of decreased sleep, energy, concentration, and appetite. However, patient does report her mood has been getting better. Denies feeling guilty. Denies suicidal ideations today. Patient denies hearing voices. Patient reports his withdrawal symptoms have subsided for the most part. At the treatment plan meeting, patient reports desire to go back to [facility] in [place]. Patient graduated from their rehab program back in 2014 and is committed to completing the program again. Patient is motivated to improve his conditions. She is taking medications and denies any side effects. Supportive therapy and psychoeducation were given. 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
[2017-09-22] MEDS ORDERED: Pneumococcal 23-Valent Vaccine IM ONE (10:00)
--- NOTE | 2017-09-23 17:47 | PCM.PYCHPN ---
Psychiatric Progress Note - Psychiatric Progress Note Patient seen today, length of contact: 15 min Patient Chief Complaint: I was feeling better.' Problems Identified/Issues Discussed: Patient is a 42 year old male presenting to the ED requesting detox from heroin. Patient states that he uses Heroin IV and his last use was Sunday night. Patient states that he wants harm himself on the day he was admitted. Patient was seen and evaluated, chart reviewed and discussed with nurse. Patient reports feeling depressed, complaining of decreased sleep, energy, concentration, and appetite. However, patient does report her mood has been getting better. Denies feeling guilty. Denies suicidal ideations today. Patient denies hearing voices. Patient reports his withdrawal symptoms have subsided for the most part. At the treatment plan meeting, patient reports desire to go back to [facility] in [place]. Patient graduated from their rehab program back in 2014 and is committed to completing the program again. Patient is motivated to improve his conditions. She is taking medications and denies any side effects. Supportive therapy and psychoeducation were given. Medication Change: Yes Medical Record Reviewed: Yes Mental Status Examination - Cognitive Function Orientation: Person, Place, Situation, Time - Mood Mood: Depressed, Anxious - Affect Affect: Constricted, Depressed - Speech Speech: Soft - Formal Thought Process Formal Thought Process: No Impairment - Suicidal Ideation Suicidal Ideation: No - Homicidal Ideation Homicidal Ideation: No Goal/Treatment Plan - Goal/Treatment Plan Need for Continued Stay: Severe depression anxiety, Severe functional impairment Progress Toward Problem(s) and Goals/Treatment Plan: Major depressive disorder single episode severe without psychotic features -CBT -Psychoeducation -Supportive therapy, group therapy, individual therapy -Trazodone 50 mg by mouth daily at bedtime -Celexa 20 mg daily -Hydroxyzine 25 mg by mouth every 6 hours when necessary Opioid use disorder severe -CBT -Psychoeducation -Supportive therapy, individual therapy -Use [place] for abstinence Opioid withdrawal -CBT -Psychoeducation -Supportive therapy, individual therapy -Clonidine when necessary -Methadone taper
[2017-09-25 06:16] VITALS: O2SAT 99
--- NOTE | 2017-09-25 13:26 | PCM.PYCHPN ---
Psychiatric Progress Note - Psychiatric Progress Note Patient seen today, length of contact: 15 min Patient Chief Complaint: I was feeling better.' Problems Identified/Issues Discussed: Patient is a 42 year old male presenting to the ED requesting detox from heroin. Patient states that he uses Heroin IV and his last use was Sunday night. Patient states that he wants harm himself on the day he was admitted. Patient was seen and evaluated, chart reviewed and discussed with nurse. Patient reports feeling depressed, complaining of decreased sleep, energy, concentration, and appetite. However, patient does report her mood has been getting better. Denies feeling guilty. Denies suicidal ideations today. Patient denies hearing voices. Patient reports his withdrawal symptoms have subsided for the most part. At the treatment plan meeting, patient reports desire to go back to [facility] in [place]. Patient graduated from their rehab program back in 2014 and is committed to completing the program again. Patient is motivated to improve his conditions. She is taking medications and denies any side effects. Supportive therapy and psychoeducation were given. Medication Change: Yes Medical Record Reviewed: Yes Mental Status Examination - Cognitive Function Orientation: Person, Place, Situation, Time - Mood Mood: Depressed, Anxious - Affect Affect: Constricted, Depressed - Speech Speech: Soft - Formal Thought Process Formal Thought Process: No Impairment - Suicidal Ideation Suicidal Ideation: No - Homicidal Ideation Homicidal Ideation: No Goal/Treatment Plan - Goal/Treatment Plan Need for Continued Stay: Severe depression anxiety, Severe functional impairment Progress Toward Problem(s) and Goals/Treatment Plan: Major depressive disorder single episode severe without psychotic features -CBT -Psychoeducation -Supportive therapy, group therapy, individual therapy -Trazodone 50 mg by mouth daily at bedtime -Celexa 20 mg daily -Hydroxyzine 25 mg by mouth every 6 hours when necessary Opioid use disorder severe -CBT -Psychoeducation -Supportive therapy, individual therapy -Use [place] for abstinence Opioid withdrawal -CBT -Psychoeducation -Supportive therapy, individual therapy -Clonidine when necessary -Methadone taper
--- NOTE | 2017-09-26 14:09 | PCM.PYCHPN ---
Psychiatric Progress Note - Psychiatric Progress Note Patient seen today, length of contact: 15 min Patient Chief Complaint: I m feeling better.' Problems Identified/Issues Discussed: Patient was seen and evaluated, chart reviewed and discussed with nurse. Patient reports improvement in his mood, and reports improvement in the withdrawal symptoms. He is looking forward to go to [facility], [facility]. He is taking medications and denies any side effects. Symptoms are improving but he needs more time for stabilization Supportive therapy and psychoeducation were given. Medication Change: Yes Medical Record Reviewed: Yes Mental Status Examination - Cognitive Function Orientation: Person, Place, Situation, Time Memory: Intact Attention: WNL Concentration: Poor Association: WNL Fund of Knowledge: WNL - Mood Mood: Depressed, Anxious - Affect Affect: Constricted, Depressed - Speech Speech: Soft - Formal Thought Process Formal Thought Process: No Impairment - Suicidal Ideation Suicidal Ideation: No - Homicidal Ideation Homicidal Ideation: No Goal/Treatment Plan - Goal/Treatment Plan Need for Continued Stay: Severe depression anxiety, Severe functional impairment Progress Toward Problem(s) and Goals/Treatment Plan: Major depressive disorder single episode severe without psychotic features -CBT -Psychoeducation -Supportive therapy, group therapy, individual therapy -Trazodone 50 mg by mouth daily at bedtime -Celexa 20 mg daily -Hydroxyzine 25 mg by mouth every 6 hours when necessary Opioid use disorder severe -CBT -Psychoeducation -Supportive therapy, individual therapy -Use [place] for abstinence Opioid withdrawal -CBT -Psychoeducation -Supportive therapy, individual therapy -Clonidine when necessary -Methadone taper - Smoking Cessation Smoking Cessation Initiated: No
--- NOTE | 2017-09-27 15:03 | PCM.PYCHPN ---
Psychiatric Progress Note - Psychiatric Progress Note Patient seen today, length of contact: 15 min Patient Chief Complaint: I m feeling better.' Problems Identified/Issues Discussed: Patient was seen and evaluated, chart reviewed and discussed with nurse. Patient reports improvement in his mood, and reports improvement in the withdrawal symptoms. He is looking forward to go to [facility], [facility]. He is taking medications and denies any side effects. Symptoms are improving but he needs more time for stabilization Supportive therapy and psychoeducation were given. Medication Change: Yes Medical Record Reviewed: Yes Mental Status Examination - Cognitive Function Orientation: Person, Place, Situation, Time Memory: Intact Attention: WNL Concentration: Poor Association: WNL Fund of Knowledge: WNL - Mood Mood: Depressed, Anxious - Affect Affect: Constricted, Depressed - Speech Speech: Soft - Formal Thought Process Formal Thought Process: No Impairment - Suicidal Ideation Suicidal Ideation: No - Homicidal Ideation Homicidal Ideation: No Goal/Treatment Plan - Goal/Treatment Plan Need for Continued Stay: Severe depression anxiety, Severe functional impairment Progress Toward Problem(s) and Goals/Treatment Plan: Major depressive disorder single episode severe without psychotic features -CBT -Psychoeducation -Supportive therapy, group therapy, individual therapy -Trazodone 50 mg by mouth daily at bedtime -Celexa 20 mg daily -Hydroxyzine 25 mg by mouth every 6 hours when necessary Opioid use disorder severe -CBT -Psychoeducation -Supportive therapy, individual therapy -Use [place] for abstinence Opioid withdrawal -CBT -Psychoeducation -Supportive therapy, individual therapy -Clonidine when necessary -Methadone taper
[2017-09-28 06:31] VITALS: BP 121/77; PULSE 69; RESP 20; TEMP 97.9
--- NOTE | 2017-09-28 10:10 | PCM.PYCHDC ---
Mental Status Examination - Mental Status Examination Orientation: Person, Place, Situation, Time Memory: Intact Mood: Neutral Affect: Constricted Speech: Soft Attention: WNL Concentration: WNL Association: WNL Fund of Knowledge: WNL Formal Thought Process: No Impairment Description of patient's judgement and insight: good, fair Psychotic Thoughts and Behaviors: denies any AVH Suicidal Ideation: No Current Homicidal Ideation?: No Discharge Summary - Discharge Note Reason for Hospitalization: Patient is a 42 year old male presenting to the ED requesting detox from heroin and suicidal ideations. Patient states that he uses Heroin IV and his last use was Sunday. He states he brought himself to the hospital because he wants to clean up his mess with heroin use. He also indicates he has been feeling suicidal for the past two days, " I was thinking I want to hurt himself." Patient normally has 6- 7 bags of heroin a day via IV. Patient currently has withdrawal symptoms including nausea, shaky feeling, fatigue, and joint pain. Patient states he feels depressed complaining of decreased sleep, interests, feeling guilty for his abuse problems, and decreased energy. Patient denies any auditory or visual hallucinations or any paranoia. Patient was in the detox at [facility] 2 months ago. After he was discharged, he went to [facility] in [place]. He stopped following up there because he hated being in a hospital setting. He ended up relapsing and started heroin use. Patient states he has the motivation to get better and that is why he came on his own to the hospital. Consultations:: List each consultation separately and include: 1. Reason for request. 2. Findings. 3. Follow-up Summary of Hospital Course include:: 1. Description of specific treatment plan utilized for patients during their course of treatmen. 2. Summarize the time- course for resolution of acute symptoms and/or regressed behaviors. 3. Describe issues identified and worked on during hospitalization. 4. Describe medication utilized. 5. Describe medical problems identified and treated. 6. Reassessment of suicide risk Summary of Hospital Course: Patient is a 42 year old male presenting to the ED requesting detox from heroin and suicidal ideations. Patient states that he uses Heroin IV and his last use was Sunday. He states he brought himself to the hospital because he wants to clean up his mess with heroin use. He also indicates he has been feeling suicidal for the past two days, " I was thinking I want to hurt himself." Patient normally has 6- 7 bags of heroin a day via IV. Patient currently has withdrawal symptoms including nausea, shaky feeling, fatigue, and joint pain. Patient states he feels depressed complaining of decreased sleep, interests, feeling guilty for his abuse problems, and decreased energy. Patient denies any auditory or visual hallucinations or any paranoia. Patient was in the detox at [facility] 2 months ago. After he was discharged, he went to [facility] in [place]. He stopped following up there because he hated being in a hospital setting. He ended up relapsing and started heroin use. Patient states he has the motivation to get better and that is why he came on his own to the hospital. Past Medical History: Denies Past Surgical History: Denies Allergies: Denies - Diagnosis (1) Depression Current Visit: Yes Status: Acute (2) Opioid use disorder, severe, dependence Current Visit: Yes Status: Acute - Final Diagnosis (DSM 5) Condition upon Discharge: STABLE DSM 5: Major depressive disorder single episode severe without psychotic features Opioid use disorder severe Opioid withdrawal Disposition: HOME/ ROUTINE Follow-up Treatment Plan: Major depressive disorder single episode severe without psychotic features -CBT -Psychoeducation -Supportive therapy, group therapy, individual therapy -Trazodone 50 mg by mouth daily at bedtime -Celexa 20 mg daily -Hydroxyzine 25 mg by mouth every 6 hours when necessary Opioid use disorder severe -CBT -Psychoeducation -Supportive therapy, individual therapy -Use [place] for abstinence Opioid withdrawal -CBT -Psychoeducation -Supportive therapy, individual therapy -Clonidine when necessary -Methadone taper Prescriptions/Medication Reconciliation: traZODone [Desyrel] 50 mg PO HS #30 tab - Smoking Cessation Smoking Cessation Medication prescribed: No - Antipsychotic Medications Pt discharged on 2 or more routine antipsychotic medications: No
== END 2017-09-28 10:45 | disposition home or self-care (01) | DRG 430 ==
LOC: C.ER 10:55 → C.5E 14:25
PROVIDERS: ADMIT Psychiatry & Neurology Psychiatry; ATTEND Psychiatry & Neurology Psychiatry
PROC: GZ3ZZZZ Medication Management (ICD-10-PCS; principal; 2017-09-19)
PROC: HZ2ZZZZ Detoxification Services for Substance Abuse Treatment (ICD-10-PCS; 2017-09-19)
PROC: GZHZZZZ Group Psychotherapy (ICD-10-PCS; 2017-09-19)
PROC: GZ56ZZZ Individual Psychotherapy, Supportive (ICD-10-PCS; 2017-09-19)
PROC: HZ59ZZZ Individual Psychotherapy for Substance Abuse Treatment, Supportive (ICD-10-PCS; 2017-09-19)
PROC: HZ56ZZZ Individual Psychotherapy for Substance Abuse Treatment, Psychoeducation (ICD-10-PCS; 2017-09-19)
DX: F32.2 Major depressive disorder, single episode, severe without psychotic features (principal); F11.23 Opioid dependence with withdrawal; R45.851 Suicidal ideations

== ENCOUNTER 2017-10-20 22:21 | Inpatient (IN) | payer MEDICAID ==
[2017-10-20 23:06] LABS: BASO # 0.1 K/uL (0.0-0.2); EOS % 0.1 % (0.0-4.0); LYMPH # 1.7 K/uL (1.0-4.3); MEAN CELL VOLUME 88.2 fL (80.0-94.0)
[2017-10-20 23:12] LABS: URINE BILIRUBIN NEGATIVE (NEGATIVE); URINE BLOOD NEGATIVE (NEGATIVE); URINE CLARITY Clear (Clear); URINE COLOR Yellow (YELLOW); URINE GLUCOSE (UA) NORMAL (Normal); URINE LEUKOCYTE ESTERASE NEG Leu/uL (Negative); URINE PROTEIN 1+ mg/dL (NEGATIVE)
[2017-10-20 23:15] LABS: BASO % 0.8 % (0.0-2.0); HEMOGLOBIN 15.6 g/dL (12.0-18.0); LYMPH % 15.5 % (20.0-40.0); MEAN CORPUSCULAR HEMOGLOBIN 30.5 pg (27.0-31.0); MEAN CORPUSCULAR HGB CONC 34.5 g/dL (33.0-37.0); MEAN PLATELET VOLUME 8.9 fL (7.2-11.7); MONO # 0.8 K/uL (0.0-0.8); MONO % 7.4 % (0.0-10.0); NEUT # 8.3 K/uL (1.8-7.0); NEUT % 76.2 % (50.0-75.0); NRBC % 0.2 % (0.0-2.0); RBC 5.12 Mil/uL (4.40-5.90)
--- NOTE | 2017-10-20 23:16 | C.PDOC ---
History Of Present Illness 42 year old male presents to the ED for evaluation for suicidal ideation. Patient states he wants to kill himself and today he tried injecting himself 15 bags of heroin. Patient wants no detox. Patient denies HI, hallucinations, CP, SOB, chills. Time Seen by Provider: 10/20/17 22:38 Chief Complaint (Nursing): Psychiatric Evaluation History Per: Patient History/Exam Limitations: no limitations Onset/Duration Of Symptoms: Days Current Symptoms Are (Timing): Still Present Suicide/Self Injury Attempted (Context): Ingestion Modifying Factor(s): Other (Heroin) Associated Symptoms: Depression, Suicidal Thoughts. denies: Suicidal Plan Involuntary Hold By: None Recent travel outside of the [place]: No Additional History Per: Patient, EMS Past Medical History Reviewed: Historical Data, Nursing Documentation, Vital Signs Vital Signs: Last Vital Signs Temp 98.3 F 10/20/17 22:28 Pulse 110 H 10/20/17 22:28 Resp 16 10/20/17 22:28 BP 146/95 H 10/20/17 22:28 Pulse Ox 97 10/20/17 23:34 - Medical History PMH: No Chronic Diseases Denies: Diabetes, Hepatitis, HIV, HTN, Seizures, Sexually Transmitted Disease Surgical History: No Surg Hx - [facility] DETOXIFICATION SERVICES FOR SUBSTANCE ABUSE TREATMENT (09/19/17) GROUP TRANSPORTATION PLANNING ENGINEER FOR SUBSTANCE ABUSE TREATMENT, PSYCHOEDUCATION (07/03/17) GROUP PSYCHOTHERAPY (09/19/17) INDIV PSYCHOTHERAPY FOR SUBSTANCE ABUSE TREATMENT, SUPPORT (09/19/17) INDIV PSYCHOTHERAPY FOR SUBSTANCE ABUSE, PSYCHOEDUCATION (09/19/17) INDIVIDUAL PSYCHOTHERAPY, SUPPORTIVE (09/19/17) MEDICATION MANAGEMENT (09/19/17) PHARMACOTHERAPY FOR SUBSTANCE ABUSE, NICOTINE REPLACE (07/03/17) Family History: States: Unknown Family Hx - Social History Hx Alcohol Use: Yes (sometime.) Hx Substance Use: Yes - Immunization History Hx Tetanus Toxoid Vaccination: No Hx Influenza Vaccination: No Hx Pneumococcal Vaccination: No Review Of Systems Except As Marked, All Systems Reviewed And Found Negative. Psych: Positive for: Depression, Suicidal ideation Physical Exam - Physical Exam Additional Physical Exam Comments: Constitutional: No acute distress. Head: Normocephalic. Atraumatic. Eyes: PERRL. ENT: Moist mucous membranes. Neck: Supple. Cardiovascular: Regular rate. Radial pulse 2+ bilaterally. Chest: No tenderness. Respiratory: Clear to auscultation bilaterally. GI: Soft. Nontender. Nondistended. Back: No CVA tenderness. Musculoskeletal: No tenderness or swelling of extremities. Skin: No rash. Neurologic: Alert, no focal deficit. ED Course And Treatment - Laboratory Results Result Diagrams: 10/20/17 23:00 10/20/17 23:00 O2 Sat by Pulse Oximetry: 97 (ON RA) Pulse Ox Interpretation: Normal Medical Decision Making Medical Decision Making: Impression: substance abuse Plan: * Labs * UA * 1:1 Obs Medically clear, pending psych dispo. Signed out to ED night team. Disposition - Disposition Disposition Time: 23:34 Condition: FAIR Forms: [facility] (U[place]ayan) - Clinical Impression Clinical Impression: Depression - Scribe Statement The provider has reviewed the documentation as recorded by the Scribe Darin Verma All medical record entries made by the Scribe were at my direction and personally dictated by me. I have reviewed the chart and agree that the record accurately reflects my personal performance of the history, physical exam, medical decision making, and the department course for this patient. I have also personally directed, reviewed, and agree with the discharge instructions and disposition.
[2017-10-20 23:26] LABS: ALB/GLOB RATIO 1.1 (1.0-2.1); ALBUMIN 4.8 g/dL (3.5-5.0); ALT/SGPT 205 U/L (21-72); AST/SGOT 184 U/L (17-59); BLOOD UREA NITROGEN 20 mg/dL (9-20); CALCIUM 9.6 mg/dl (8.6-10.4); GFR AFRICAN-AMERICAN > 60; GFR NON-AFRICAN AMERICAN > 60
[2017-10-20 23:27] LABS: BARBITURATES, UR NEGATIVE (NEGATIVE); BENZODIAZEPINES, UR NEGATIVE (NEGATIVE); PHENCYCLIDINE, UR NEGATIVE (NEGATIVE)
[2017-10-20 23:33] LABS: OPIATES, UR POSITIVE (NEGATIVE)
--- NOTE | 2017-10-21 06:30 | PCM.BM ---
<Ashely Ballard - Last Filed: 10/21/17 06:28> Treatment Plan Problems - Problems identified on initial assessmt Opiates dependence Date Initiated: 10/21/17 Time Initiated: 06:55 Assessment reference: NA Status: Active Treatment assets and liabiliti Patient Assests: cooperative, insightful, motivated, negotiates basic needs Patient Liabilities: substance abuse - Milieu Protocol Maintain good personal hygiene: daily Encourage regular showers, daily Remind patient to perform daily oral care, daily Assist patient to perform ADL's Maintain personal safety: every shift Educate patient to report safety concerns to staff, every shift Monitor environment for contraband/sharps Medication safety: Monitor for expected outcome, potential side effects: every shift, Assess barriers to learning: every shift, Assess readiness for medication education: every shift <Clay Farmer - Last Filed: 10/21/17 16:58> - Diagnosis (1) Opioid use disorder, severe, dependence Status: Acute Interventions: 10/21/17 16:57 * Assess 7x/week regarding severity of withdrawal * Educate regarding risks, benefits, side effects and alternatives of medications * Use Motivational Interviewing for abstinence * Use CBT for relapse prevention * Medication management for withdrawal symptoms * Encourage medication assisted treatment (2) Major depressive disorder, recurrent severe without psychotic features Status: Acute Interventions: 10/21/17 16:58 * Assess/adjust medications daily and /or as needed * See patient on an individual basis 7x/week to assess symptoms of depression * Monitor for side effects & effectiveness of medications <Akua Villagran - Last Filed: 10/22/17 08:21> Family Contact Family involvement: Nevay/SO not involved - Goals for Treatment Patient goals for treatment: Complete detox and apply for the [facility]. Discharge/Continuing Care - Education Needs Education Needs: Patient Medication, Patient Diagnosis/Disease Process, Patient Coping Skills, Patient Anger Management skills, Patient Placement options, Patient Community resources - Discharge Discharge Criteria: No longer exhibiting s/s of withdrawal, Reduction of target symptoms Discharge to:: Substance Abuse Rehab - Treatment Team Participation Patient/Family/SO Statement: 10/22/17 08:21 "I wanna try to get into the [facility] in [place]..." Discussed with Family/SO: No Was Patient/Family/SO present at Treatment Team Meeting: Yes
[2017-10-21 06:37] VITALS: RESP 18
[2017-10-21] MEDS ORDERED: Aluminum Hydroxide/Magnesium Hydroxide Susp (30 mL) PO PRN (16:36)
--- NOTE | 2017-10-21 16:49 | PCM.PSYCH ---
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 Patient reported feeling depressed for long, increased in intensity for last 2 weeks with decreased sleep and appetite. Denied any current or past suicidal ideations or homicidal ideations. Denied any previous suicidal attempts. Patient denied any psychotic manic or anxiety symptoms. Opioid: Patient started using heroin at 20 years of age, increased gradually, currently he was using 1 bundle daily, IV. Last use of heroin was one day before , 5 bags. Also smokes half pack of cigarettes daily and is requesting for nicotine patch. Patient was born in [place], a single has 2 children both of 10 years old, one son and one daughter, both lives in [place].. 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 Lives alone. Current Medications: Active Medications Generic Name Dose Route Start Last Admin Trade Name Freq PRN Reason Stop Dose Admin Acetaminophen 650 mg 10/21/17 06:31 10/21/17 14:53 Tylenol 325mg Tab PO 650 mg Q6H PRN Administration Pain Al Hydrox/Mg Hydrox/Simethicone 30 ml 10/21/17 16:36 Maalox 30 Ml PO TID PRN Indigestion / Heartburn Dicyclomine HCl 10 mg 10/21/17 16:40 Bentyl PO Q6 PRN Abdominal Cramps Gabapentin 300 mg 10/21/17 18:00 Neurontin PO BID ERIKA Hydroxyzine HCl 25 mg 10/21/17 16:41 Atarax PO Q6 PRN Anxiety Ibuprofen 400 mg 10/21/17 16:42 Motrin Tab PO Q6 PRN Pain, moderate (4-7) Loperamide HCl 2 mg 10/21/17 16:36 Imodium PO Q8 PRN Diarrhea Methadone HCl 15 mg 10/21/17 16:45 Methadone PO 10/25/17 09:59 Q24H ERIKA Taper Nicotine 1 patch 10/21/17 16:45 Nicoderm Cq TD DAILY ERIKA Ondansetron HCl 4 mg 10/21/17 16:36 Zofran Tab PO Q8 PRN Nausea/Vomiting Pneumococcal Polyvalent Vaccine 0.5 ml 10/24/17 10:00 Pneumovax 23 Vaccine IM 10/24/17 10:01 .ONCE ONE Sertraline HCl 50 mg 10/21/17 16:45 Zoloft PO DAILY ERIKA Past Psychiatric History - Past Psychiatric History Previous Treatment History: None History of Abuse: None reported History of ETOH/Drug Use: See HPI History of Family Illness: None reported Pertinent Medical Hx (Current Medical&Sleep Prob, Allergies): Allergies Allergy/AdvReac Type Severity Reaction Status Date / Time No Known Allergies Allergy Verified 09/19/17 11:11 No Known Home Med 10/20/17 Review of Systems - Review of Systems Systems not reviewed;Unavailable: Acuity of Condition - Psychiatric Psychiatric: As Per HPI Mental Status Examination - Personal Presentation Personal Presentation: Looks stated age - Affect Affect: Depressed - Motor Activity Motor Activity: Calm - Reliability in Providing Information Reliability in Providing Information: Fair - Speech Speech: Relevant - Mood Mood: Depressed - Formal Thought Process Formal Thought Process: No Impairment - Hallucinations/Delusions Hallucinations: Other (None reported) Delusions: Other - Obsessions/Compulsions Obsessions: None Compulsions: None - Cognitive Functions Orientation: Person, Place, Situation, Time Sensorium: Alert Attention/Concentration: Attentive Abstract Thinking: [place] Judgement: Intact, as evidence by: Insight regarding need for hospitalization Memory: Recent intact, as evidence by: 3/3 object recall, Remote intact, as evidenced by: Ability to recall historical events - Risk Risk: Withdrawal, Diminished functioning - Strength & Assets Inventory Strength & Assets Inventory: Cooperative - Limitations Limitations: Living alone DSM 5 DX - DSM 5 DSM 5 Diagnosis: Opiate use disorder severe Major depressive disorder recurrent severe without psychotic features - Recommended/Plan of Treatment Treatment Recommendations and Plan of Treatment: Patient education. Supportive therapy. CBT for relapse prevention. [place] for abstinence. We'll start methadone taper for opiate withdrawal symptoms as patient preference Zoloft. Other when necessary medications. Patient [facility] for follow-up. After discharge from the hospital Projected ELOS: For 5 days - Smoking Cessation Smoking Cessation Initiated: Yes
--- NOTE | 2017-10-22 10:17 | PCM.PYCHPN ---
Psychiatric Progress Note - Psychiatric Progress Note Patient seen today, length of contact: 16 min Patient Chief Complaint: "I'm OK" Problems Identified/Issues Discussed: The pt is seen, chart reviewed, case discussed with staff. The pt is compliant with medications and reports no side-effects. Symptoms are improving but needs more time to stabilize. After care discussed, support and psychoeducation given. Medication Change: Yes (detox changes daily) Medical Record Reviewed: Yes Mental Status Examination - Cognitive Function Orientation: Person, Place, Situation, Time Memory: Intact Attention: WNL Concentration: Poor Association: WNL Fund of Knowledge: WNL - Mood Mood: Depressed - Affect Affect: Constricted, Depressed - Speech Speech: Appropriate - Formal Thought Process Formal Thought Process: No Impairment - Suicidal Ideation Suicidal Ideation: No - Homicidal Ideation Homicidal Ideation: No Goal/Treatment Plan - Goal/Treatment Plan Need for Continued Stay: Discharge may exacerbated symptoms, Severe functional impairment Progress Toward Problem(s) and Goals/Treatment Plan: Continue detox Refer to rehab Support and psychoed [place] for abstinence CBT for relapse preventions As needed meds Attend groups Estimated Date of D/C: 10/24/17
--- NOTE | 2017-10-23 12:03 | PCM.PYCHPN ---
Psychiatric Progress Note - Psychiatric Progress Note Patient seen today, length of contact: 16 min Patient Chief Complaint: "I'm OK" Problems Identified/Issues Discussed: The pt is seen, chart reviewed, case discussed with staff. The pt is compliant with medications and reports no side-effects. Symptoms are improving but needs more time to stabilize. After care discussed, support and psychoeducation given. Medication Change: Yes (detox changes daily) Medical Record Reviewed: Yes Mental Status Examination - Cognitive Function Orientation: Person, Place, Situation, Time Memory: Intact Attention: WNL Concentration: Poor Association: WNL Fund of Knowledge: WNL - Mood Mood: Depressed - Affect Affect: Constricted, Depressed - Speech Speech: Appropriate - Formal Thought Process Formal Thought Process: No Impairment - Suicidal Ideation Suicidal Ideation: No - Homicidal Ideation Homicidal Ideation: No Goal/Treatment Plan - Goal/Treatment Plan Need for Continued Stay: Discharge may exacerbated symptoms, Severe functional impairment Progress Toward Problem(s) and Goals/Treatment Plan: Continue detox Refer to rehab Support and psychoed [place] for abstinence CBT for relapse preventions As needed meds Attend groups Estimated Date of D/C: 10/24/17
--- NOTE | 2017-10-24 08:43 | PCM.PYCHDC ---
Mental Status Examination - Mental Status Examination Orientation: Person, Place, Situation, Time Memory: Intact Mood: Anxious Affect: Constricted Speech: Appropriate Attention: WNL Concentration: WNL Association: WNL Fund of Knowledge: WNL Formal Thought Process: No Impairment Suicidal Ideation: No Current Homicidal Ideation?: No Discharge Summary - Discharge Note Consultations:: List each consultation separately and include: 1. Reason for request. 2. Findings. 3. Follow-up Summary of Hospital Course include:: 1. Description of specific treatment plan utilized for patients during their course of treatmen. 2. Summarize the time- course for resolution of acute symptoms and/or regressed behaviors. 3. Describe issues identified and worked on during hospitalization. 4. Describe medication utilized. 5. Describe medical problems identified and treated. 6. Reassessment of suicide risk Summary of Hospital Course: The pt was admitted and started on treatment with psychotherapy, support, psychoeducation and medications. [place] and CBT used. The pt attended groups and activities, as well as milieu therapy. All the risks and benefits of medications are discussed and the patient understood and agreed. The pt improved with the treatments provided. After care discussed with the patient. He will go to [facility] in [place]. - Final Diagnosis (DSM 5) Condition upon Discharge: IMPROVED Disposition: REHAB FACILITY/REHAB UNIT Follow-up Treatment Plan: Continue below medications after discharge. Follow after care plan as discussed. Use relapse prevention skills Return to ER or call 911 if suicidal, homicidal or symptoms relapse. Stay away from stress, alcohol and drugs. See primary doctor regularly and get labs. Prescriptions/Medication Reconciliation: Gabapentin [Neurontin] 300 mg PO BID #60 cap Sertraline [Zoloft] 50 mg PO DAILY #30 tab traZODone [Desyrel] 100 mg PO HS #30 tab
[2017-10-24] MEDS ORDERED: Pneumococcal 23-Valent Vaccine IM ONE (10:00)
[2017-10-24 11:13] VITALS: BP 131/79; PULSE 78; TEMP 98.2; O2SAT 100
== END 2017-10-24 10:30 | disposition home or self-care (01) | DRG 430 ==
LOC: C.ER 22:21 → C.7D 10-21 05:16
DX: F33.2 Major depressive disorder, recurrent severe without psychotic features (principal); F11.20 Opioid dependence, uncomplicated; F17.210 Nicotine dependence, cigarettes, uncomplicated; R45.851 Suicidal ideations

== ENCOUNTER 2018-09-05 14:20 | Inpatient (IN) | payer MEDICAID ==
[2018-09-05 15:19] LABS: BASO # 0.1 K/uL (0.0-0.2); BASO % 1.1 % (0.0-2.0); EOS % 0.2 % (0.0-4.0); LYMPH # 2.3 K/uL (1.0-4.3); LYMPH % 27.7 % (20.0-40.0); MEAN CELL VOLUME 87.6 fL (80.0-94.0); MEAN CORPUSCULAR HEMOGLOBIN 29.8 pg (27.0-31.0); MEAN PLATELET VOLUME 8.5 fL (7.2-11.7); MONO # 0.5 K/uL (0.0-0.8); MONO % 6.7 % (0.0-10.0); NEUT # 5.2 K/uL (1.8-7.0); NEUT % 64.3 % (50.0-75.0); NRBC % 0.1 % (0.0-2.0); RBC 4.47 Mil/uL (4.40-5.90); RED CELL DISTRIBUTION WIDTH 13.5 % (11.5-14.5); WHITE BLOOD COUNT 8.1 K/uL (4.8-10.8)
[2018-09-05 15:24] LABS: HEMOGLOBIN 13.3 g/dL (12.0-18.0)
[2018-09-05 15:32] LABS: ALB/GLOB RATIO 1.2 (1.0-2.1); ALBUMIN 4.3 g/dL (3.5-5.0); ALT/SGPT 60 U/L (21-72); AST/SGOT 49 U/L (17-59); BLOOD UREA NITROGEN 16 mg/dL (9-20); CALCIUM 9.4 mg/dl (8.6-10.4); GFR NON-AFRICAN AMERICAN > 60
[2018-09-05 15:37] LABS: URINE BILIRUBIN NEGATIVE (NEGATIVE); URINE BLOOD NEGATIVE (NEGATIVE); URINE CLARITY Clear (Clear); URINE COLOR Yellow (YELLOW); URINE GLUCOSE (UA) NORMAL (Normal); URINE LEUKOCYTE ESTERASE NEG Leu/uL (Negative); URINE PROTEIN NEGATIVE (NEGATIVE)
[2018-09-05 15:53] LABS: BARBITURATES, UR NEGATIVE (NEGATIVE); BENZODIAZEPINES, UR NEGATIVE (NEGATIVE); PHENCYCLIDINE, UR NEGATIVE (NEGATIVE)
[2018-09-05 16:04] LABS: OPIATES, UR POSITIVE (NEGATIVE)
--- NOTE | 2018-09-05 16:48 | C.PDOC ---
Time Seen by Provider: 09/05/18 14:28 Chief Complaint (Nursing): Psychiatric Evaluation Past Medical History Vital Signs: Last Vital Signs Temp 98.8 F 09/05/18 14:28 Pulse 100 H 09/05/18 14:28 Resp 20 09/05/18 14:28 BP 135/89 09/05/18 14:28 Pulse Ox 99 09/05/18 14:28 Primary Care Provider: FAMILY PROVIDER,NO - Medical History PMH: Depression, HTN Denies: Diabetes, Hepatitis, HIV, Seizures, Sexually Transmitted Disease - [facility] Procedures DETOXIFICATION SERVICES FOR SUBSTANCE ABUSE TREATMENT (09/19/17) GROUP TRAVEL REGISTERED NURSE ICU FOR SUBSTANCE ABUSE TREATMENT, PSYCHOEDUCATION (07/03/17) GROUP PSYCHOTHERAPY (09/19/17) INDIV PSYCHOTHERAPY FOR SUBSTANCE ABUSE TREATMENT, SUPPORT (09/19/17) INDIV PSYCHOTHERAPY FOR SUBSTANCE ABUSE, PSYCHOEDUCATION (09/19/17) INDIVIDUAL PSYCHOTHERAPY, SUPPORTIVE (09/19/17) MEDICATION MANAGEMENT (09/19/17) PHARMACOTHERAPY FOR SUBSTANCE ABUSE, NICOTINE REPLACE (07/03/17) Family History: States: Unknown Family Hx - Social History Hx Alcohol Use: Yes Hx Substance Use: Yes - Immunization History Hx Tetanus Toxoid Vaccination: No Hx Influenza Vaccination: No Hx Pneumococcal Vaccination: No ED Course And Treatment - Laboratory Results Result Diagrams: 09/05/18 15:11 09/05/18 15:11 Lab Results: Total Bilirubin 0.9 mg/dL (0.2-1.3) 09/05/18 15:11 AST 49 U/L (17-59) 09/05/18 15:11 ALT 60 U/L (21-72) 09/05/18 15:11 Alkaline Phosphatase 61 U/L (38-126) 09/05/18 15:11 Total Protein 7.9 g/dL (6.3-8.3) 09/05/18 15:11 Albumin 4.3 g/dL (3.5-5.0) 09/05/18 15:11 Globulin 3.6 gm/dL (2.2-3.9) 09/05/18 15:11 Albumin/Globulin Ratio 1.2 (1.0-2.1) 09/05/18 15:11 Urine Color Yellow (YELLOW) 09/05/18 15:11 Urine Clarity Clear (Clear) 09/05/18 15:11 Urine pH 5.0 (5.0-8.0) 09/05/18 15:11 Ur Specific [place] 1.021 (1.003-1.030) 09/05/18 15:11 Urine Protein Negative mg/dL (NEGATIVE) 09/05/18 15:11 Urine Glucose (UA) Normal mg/dL (Normal) 09/05/18 15:11 Urine Ketones Negative mg/dL (NEGATIVE) 09/05/18 15:11 Urine Blood Negative (NEGATIVE) 09/05/18 15:11 Urine Nitrate Negative (NEGATIVE) 09/05/18 15:11 Urine Bilirubin Negative (NEGATIVE) 09/05/18 15:11 Urine Urobilinogen 2.0 mg/dL (0.2-1.0) 09/05/18 15:11 Ur Leukocyte Esterase Neg Vita/uL (Negative) 09/05/18 15:11 Urine WBC (Auto) < 1 /hpf (0-5) 09/05/18 15:11 O2 Sat by Pulse Oximetry: 99 Disposition - Disposition Disposition: HOSPITALIZED Disposition Time: 16:47 Condition: STABLE Forms: [facility] (Yakut) - Clinical Impression Clinical Impression: Depression, Drug abuse Decision To Admit - Pt Status Changed To: Hospital Disposition Of: Inpatient - Admit Certification Admit to Inpatient:: After my assessment, the patient will require hospita lization for at least two midnights. This is because of the severity of symptoms shown, intensity of services needed, and/or the medical risk in this patient being treated as an outpatient. - InPatient: Physician Admission Certification: I certify that this patient requires 2 or more midnights of care for the following reason:: needs more than 2 days of hosp italization - . Bed Request Type: Psychiatry Admitting Physician: Garfield Villagran Patient Diagnosis: Depression, Drug abuse
--- NOTE | 2018-09-05 16:52 | C.PDOC ---
History Of Present Illness Patient is a 43 year old male, with a PMHx of depression, who presents to the ED for evaluation of suicidal ideation. Patient does not have a suicidal plan. He denies any HI, hallucinations, CP, SOB, or other medical complaints. Time Seen by Provider: 09/05/18 14:28 Chief Complaint (Nursing): Psychiatric Evaluation History Per: Patient History/Exam Limitations: no limitations Current Symptoms Are (Timing): Still Present Suicide/Self Injury Attempted (Context): None Associated Symptoms: Depression, Suicidal Thoughts. denies: Suicidal Plan Recent travel outside of the [place]: No Additional History Per: Patient Past Medical History Reviewed: Historical Data, Nursing Documentation, Vital Signs Vital Signs: Last Vital Signs Temp 98.8 F 09/05/18 14:28 Pulse 100 H 09/05/18 14:28 Resp 20 09/05/18 14:28 BP 135/89 09/05/18 14:28 Pulse Ox 99 09/05/18 14:28 Primary Care Provider: FAMILY PROVIDER,NO - Medical History PMH: Depression, HTN Denies: Diabetes, Hepatitis, HIV, Seizures, Sexually Transmitted Disease - [facility] Procedures DETOXIFICATION SERVICES FOR SUBSTANCE ABUSE TREATMENT (09/19/17) GROUP BIAS BINDING CUTTER FOR SUBSTANCE ABUSE TREATMENT, PSYCHOEDUCATION (07/03/17) GROUP PSYCHOTHERAPY (09/19/17) INDIV PSYCHOTHERAPY FOR SUBSTANCE ABUSE TREATMENT, SUPPORT (09/19/17) INDIV PSYCHOTHERAPY FOR SUBSTANCE ABUSE, PSYCHOEDUCATION (09/19/17) INDIVIDUAL PSYCHOTHERAPY, SUPPORTIVE (09/19/17) MEDICATION MANAGEMENT (09/19/17) PHARMACOTHERAPY FOR SUBSTANCE ABUSE, NICOTINE REPLACE (07/03/17) Family History: States: Unknown Family Hx - Social History Hx Alcohol Use: Yes Hx Substance Use: Yes - Immunization History Hx Tetanus Toxoid Vaccination: No Hx Influenza Vaccination: No Hx Pneumococcal Vaccination: No Review Of Systems Except As Marked, All Systems Reviewed And Found Negative. Cardiovascular: Negative for: Chest Pain Respiratory: Negative for: Shortness of Breath Psych: Positive for: Suicidal ideation. Negative for: Other (HI or hallucinations) Physical Exam - Physical Exam Appears: Non-toxic, No Acute Distress Skin: Normal Color, Warm, Dry Head: Atraumatic, Normacephalic Oral Mucosa: Moist Neck: Normal ROM, Supple Chest: Symmetrical, No Deformity Cardiovascular: Rhythm Regular, No Murmur Respiratory: Normal Breath Sounds, No Rales, No Rhonchi, No Wheezing Gastrointestinal/Abdominal: Soft, No Tenderness Neurological/Psych: Oriented x3, Normal Speech ED Course And Treatment - Laboratory Results Result Diagrams: 09/05/18 15:11 09/05/18 15:11 Lab Results: Total Bilirubin 0.9 mg/dL (0.2-1.3) 09/05/18 15:11 AST 49 U/L (17-59) 09/05/18 15:11 ALT 60 U/L (21-72) 09/05/18 15:11 Alkaline Phosphatase 61 U/L (38-126) 09/05/18 15:11 Total Protein 7.9 g/dL (6.3-8.3) 09/05/18 15:11 Albumin 4.3 g/dL (3.5-5.0) 09/05/18 15:11 Globulin 3.6 gm/dL (2.2-3.9) 09/05/18 15:11 Albumin/Globulin Ratio 1.2 (1.0-2.1) 09/05/18 15:11 Urine Color Yellow (YELLOW) 09/05/18 15:11 Urine Clarity Clear (Clear) 09/05/18 15:11 Urine pH 5.0 (5.0-8.0) 09/05/18 15:11 Ur Specific [place] 1.021 (1.003-1.030) 09/05/18 15:11 Urine Protein Negative mg/dL (NEGATIVE) 09/05/18 15:11 Urine Glucose (UA) Normal mg/dL (Normal) 09/05/18 15:11 Urine Ketones Negative mg/dL (NEGATIVE) 09/05/18 15:11 Urine Blood Negative (NEGATIVE) 09/05/18 15:11 Urine Nitrate Negative (NEGATIVE) 09/05/18 15:11 Urine Bilirubin Negative (NEGATIVE) 09/05/18 15:11 Urine Urobilinogen 2.0 mg/dL (0.2-1.0) 09/05/18 15:11 Ur Leukocyte Esterase Neg Vita/uL (Negative) 09/05/18 15:11 Urine WBC (Auto) < 1 /hpf (0-5) 09/05/18 15:11 O2 Sat by Pulse Oximetry: 99 (on RA) Pulse Ox Interpretation: Normal Progress Note: Patient was seen by Crisis and was medically cleared. He was accepted by to the psychiatric floor. Admitted for depression and drug abuse. Disposition - Disposition Disposition: HOSPITALIZED Disposition Time: 16:52 Condition: STABLE - Clinical Impression Clinical Impression: Depression, Drug abuse - PA / BACCARAT MANAGER / Resident Statement MD/DO has examined the patient and agrees with the treatment plan. - Scribe Statement The provider has reviewed the documentation as recorded by the Sarath Hutchinson All medical record entries made by the Jhonyibmilton were at my direction and personally dictated by me. I have reviewed the chart and agree that the record accurately reflects my personal performance of the history, physical exam, medical decision making, and the department course for this patient. I have also personally directed, reviewed, and agree with the discharge instructions and disposition. Decision To Admit - Pt Status Changed To: Hospital Disposition Of: Inpatient - Admit Certification Admit to Inpatient:: After my assessment, the patient will require hospitalization for at least two midnights. This is because of the severity of symptoms shown, intensity of services needed, and/or the medical risk in this patient being treated as an outpatient. - InPatient: Physician Admission Certification: I certify that this patient requires 2 or more midnights of care for the following reason:: Will need more than 2 days of inpatient tx for depression and suicidal ideations. - . Bed Request Type: Psychiatry Admitting Physician: Garfield Villagran Patient Diagnosis: Depression, Drug abuse
--- NOTE | 2018-09-05 18:56 | PCM.BM ---
<CathyEmmy M - Last Filed: 09/05/18 18:53> Treatment assets and liabiliti Patient Assests: adapts well, cooperative, insightful, motivated, ADL independent, physically healthy, negotiates basic needs Patient Liabilities: live alone, poor support system, substance abuse - Milieu Protocol Maintain good personal hygiene: daily Encourage regular showers, daily Remind patient to perform daily oral care, daily Assist patient to perform ADL's Conduct patient checks and document Observation sheet: Q15 minutes Maintain personal safety: every shift Educate patient to report safety concerns to staff, every shift Monitor environment for contraband/sharps Medication safety: Monitor for expected outcome, potential side effects: every shift, Assess barriers to learning: every shift, Assess readiness for medication education: every shift <Garfield Villagran - Last Filed: 09/06/18 10:44> - Diagnosis (1) Major depressive disorder, recurrent severe without psychotic features Status: Acute Interventions: 09/06/18 10:45 * Assess/adjust medications daily and /or as needed * See patient on an individual basis 7x/week to assess symptoms of depression * Monitor for side effects & effectiveness of medications * (2) Opioid use disorder, severe, dependence Status: Acute Interventions: 09/06/18 10:45 * Assess 7x/week regarding severity of withdrawal * Educate regarding risks, benefits, side effects and alternatives of medications * Use Motivational Interviewing for abstinence * Use CBT for relapse prevention * Medication management for withdrawal symptoms * Encourage medication assisted treatment * <Christina Colon - Last Filed: 09/09/18 13:03> Family Contact Family involvement: Patient does not wish Family/SO involvement Family contact: Patient declines to allow family contact at present - Goals for Treatment Patient goals for treatment: "I want to go to rehab." Discharge/Continuing Care - Education Needs Education Needs: Patient Medication, Patient Diagnosis/Disease Process, Patient Coping Skills, Patient Placement options, Patient Community resources - Discharge Discharge Criteria: Free of Suicidal thoughts, Free of agitation, Normal sleep pattern, Ability to care for self, No longer exhibiting s/s of withdrawal, Reduction of target symptoms Discharge to:: Substance Abuse Rehab - Treatment Team Participation Discussed with Family/SO: No Was Patient/Family/SO present at Treatment Team Meeting: Yes
[2018-09-05] MEDS ORDERED: Aluminum Hydroxide/Magnesium Hydroxide Susp (30 mL) PO PRN (22:03)
--- NOTE | 2018-09-06 09:42 | PCM.PSYCH ---
Initial Psychiatric Evaluation - Initial Psychiatric Evaluation Type of Admission: Voluntary Legal Status: Capacity Chief Complaint (in patient's own words): I was feeling increasingly depressed and suicidal.' History of Present Illness and Precipitating Events: Pt is a 43 years old male, who is currently unemployed and lives alone, presented to [facility] with depressed and and suicidal ideation. Patient reports history of multiple inpatient psychiatric hospitalizations, however he denies any history of follow-up with any psychiatrist. He also reports history of few detox and rehab in the past. Patient reports that soon after discharge from detox he stopped taking medications and relapsed with heroin. He reports of injecting more than 10 bags of heroin along with cocaine daily, last abuse was yesterday. Patient reports that yesterday he abused more than 10 bags, became increasingly depressed and suicidal and so he came to the hospital to get help. Pt reported that he is suicidal because his drug use has caused him to be disconnected with his family, loss of his job and his apt. Patient reports depressed mood, feelings of hopelessness and helplessness. He also reports poor sleep and anhedonia. He reports at times irritability and agitation. He reports withdrawal symptoms from heroin including nausea, vomiting, cramps, joint pains, headaches, anxiety and sweating. He denies any auditory or visual hallucinations or any paranoia. Past medical history None reported Current Medications: Active Medications Generic Name Dose Route Start Last Admin Trade Name Freq PRN Reason Stop Dose Admin Acetaminophen 650 mg 09/05/18 22:03 Tylenol 325mg Tab PO Q4H PRN Fever greater than 101 F Al Hydrox/Mg Hydrox/Simethicone 30 ml 09/05/18 22:03 Maalox 30 Ml PO TID PRN Indigestion / Heartburn Clonidine HCl 0.1 mg 09/05/18 22:03 09/05/18 22:23 Catapres PO 0.1 mg Q4 PRN Administration COWS Score More or Equal to 5 Dicyclomine HCl 10 mg 09/05/18 22:03 Bentyl PO Q6 PRN Muscle spasm Gabapentin 300 mg 09/05/18 22:15 09/05/18 22:23 Neurontin PO 300 mg BID ERIKA Administration Hydroxyzine HCl 25 mg 09/05/18 22:11 09/05/18 22:23 Atarax PO 25 mg Q6 PRN Administration Agitation Loperamide HCl 2 mg 09/05/18 22:03 Imodium PO Q8 PRN Diarrhea Ondansetron HCl 4 mg 09/05/18 22:03 Zofran Tab PO Q8 PRN Nausea/Vomiting Pseudoephedrine HCl 60 mg 09/05/18 22:03 Sudafed Tab PO QID PRN Nasal/Sinus Congestion Trazodone HCl 50 mg 09/05/18 22:15 09/05/18 22:23 Desyrel PO 50 mg HS ERIKA Administration Past Psychiatric History - Past Psychiatric History Previous Treatment History: Inpatient Pertinent Medical Hx (Current Medical&Sleep Prob, Allergies): Allergies Allergy/AdvReac Type Severity Reaction Status Date / Time No Known Allergies Allergy Verified 09/19/17 11:11 No Known Home Med 09/05/18 Review of Systems - Review of Systems All systems: reviewed and no additional remarkable complaints except - Psychiatric Psychiatric: Anxiety, Depression, Hopelessness, Irritability, Suicidal Ideation Mental Status Examination - Personal Presentation Personal Presentation: Looks stated age - Affect Affect: Constricted, Depressed - Motor Activity Motor Activity: Calm - Reliability in Providing Information Reliability in Providing Information: Good - Speech Speech: Organized - Mood Mood: Depressed, Anxious - Formal Thought Process Formal Thought Process: No Impairment - Obsessions/Compulsions Obsessions: No Compulsions: No - Cognitive Functions Orientation: Person, Place, Situation, Time Sensorium: Alert Attention/Concentration: Attentive Abstract Thinking: [place] Estimate of Intelligence: Below average Judgement: Imparied, as evidence by: Poor judgement, Imparied, as evidence by: Lack of insight into illness - Risk Risk: Suicidal, Withdrawal, Diminished functioning - Limitations Limitations: Living alone DSM 5 DX - DSM 5 DSM 5 Diagnosis: Major depressive disorder recurrent severe without psychotic features Opioid use disorder severe Opiate withdrawal Cocaine use disorder severe - Recommended/Plan of Treatment Treatment Recommendations and Plan of Treatment: Major depressive disorder recurrent severe without psychotic features Opioid use disorder severe Opiate withdrawal Cocaine use disorder severe CBT Psychoeducation Supportive therapy and group therapy Methadone taper for heroin withdrawal Paxil for depression Trazodone for insomnia Hydroxyzine for anxiety Withdrawal medications Neurontin for augmentation
--- NOTE | 2018-09-07 12:06 | PCM.PYCHPN ---
Psychiatric Progress Note - Psychiatric Progress Note Patient seen today, length of contact: 16 min Patient Chief Complaint: "Pain my body, poor sleep" Problems Identified/Issues Discussed: The pt is seen, chart reviewed, case is discussed with staff. Support and psychoeducation given The pt is improving slowly but needs more time due to severity of symptoms and relapse risk. No SEs from medications, risks discussed. After care discussed Medication Change: Yes Medical Record Reviewed: Yes Mental Status Examination - Cognitive Function Orientation: Person, Place, Situation, Time Memory: Intact Attention: Poor Concentration: Poor Association: WNL Fund of Knowledge: Poor - Mood Mood: Depressed, Anxious - Affect Affect: Constricted, Depressed - Speech Speech: Appropriate - Formal Thought Process Formal Thought Process: No Impairment - Suicidal Ideation Suicidal Ideation: No - Homicidal Ideation Homicidal Ideation: No Goal/Treatment Plan - Goal/Treatment Plan Need for Continued Stay: Discharge may exacerbated symptoms, Severe functional impairment Progress Toward Problem(s) and Goals/Treatment Plan: Continue medications Support and psychoeducation daily Attend groups and activities daily Individual therapy After care planning by PADMINI and the team
[2018-09-09 06:39] VITALS: O2SAT 98
--- NOTE | 2018-09-09 10:51 | PCM.PYCHPN ---
Psychiatric Progress Note - Psychiatric Progress Note Patient seen today, length of contact: 16 min Patient Chief Complaint: I was feeling increasingly depressed and suicidal.' Problems Identified/Issues Discussed: Patient seen and evaluated, chart reviewed and discussed with the nurse. Pt still reports depressed mood but reports some improvement in the feelings of hopelessness and helplessness. Patient remained isolated, confined and withdrawn. He is on methadone taper and reports withdrawal symptoms including cramps, back pain and sweating He also reports some improvement in sleep. However he remained isolated and withdrawn. He is taking medications and denies any side effects Symptoms are improving but he needs more time for stabilization. Supportive therapy and psychoeducation were given. Medication Change: Yes Medical Record Reviewed: Yes Mental Status Examination - Cognitive Function Orientation: Person, Place, Situation, Time Memory: Intact Attention: WNL Concentration: Poor Association: WNL Fund of Knowledge: Poor - Mood Mood: Depressed, Anxious - Affect Affect: Constricted, Depressed - Speech Speech: Appropriate - Formal Thought Process Formal Thought Process: No Impairment - Suicidal Ideation Suicidal Ideation: No - Homicidal Ideation Homicidal Ideation: No Goal/Treatment Plan - Goal/Treatment Plan Need for Continued Stay: Discharge may exacerbated symptoms, Severe functional impairment Progress Toward Problem(s) and Goals/Treatment Plan: Major depressive disorder recurrent severe without psychotic features Opioid use disorder severe Opiate withdrawal Cocaine use disorder severe CBT Psychoeducation Supportive therapy and group therapy Methadone taper for heroin withdrawal Lexapro for depression Trazodone for insomnia Hydroxyzine for anxiety Withdrawal medications Neurontin for augmentation
--- NOTE | 2018-09-10 21:56 | PCM.PYCHPN ---
Psychiatric Progress Note - Psychiatric Progress Note Patient seen today, length of contact: 16 min Patient Chief Complaint: I was feeling little better.' Problems Identified/Issues Discussed: Patient seen and evaluated, chart reviewed and discussed with the nurse. As per the staff he remained isolative and withdrawn. Pt still reports depressed mood but reports some improvement in the feelings of hopelessness and helplessness. Patient remained isolated, confined and withdrawn. He is on methadone taper and reports withdrawal symptoms including cramps, back pain and sweating He is taking medications and denies any side effects Symptoms are improving but he needs more time for stabilization. Supportive therapy and psychoeducation were given. Medication Change: Yes Medical Record Reviewed: Yes Mental Status Examination - Cognitive Function Orientation: Person, Place, Situation, Time Memory: Intact Attention: WNL Concentration: Poor Association: WNL Fund of Knowledge: Poor - Mood Mood: Depressed, Anxious - Affect Affect: Constricted, Depressed - Speech Speech: Appropriate - Formal Thought Process Formal Thought Process: No Impairment - Suicidal Ideation Suicidal Ideation: No - Homicidal Ideation Homicidal Ideation: No Goal/Treatment Plan - Goal/Treatment Plan Need for Continued Stay: Discharge may exacerbated symptoms, Severe functional impairment Progress Toward Problem(s) and Goals/Treatment Plan: Major depressive disorder recurrent severe without psychotic features Opioid use disorder severe Opiate withdrawal Cocaine use disorder severe CBT Psychoeducation Supportive therapy and group therapy Methadone taper for heroin withdrawal Lexapro for depression Trazodone for insomnia Hydroxyzine for anxiety Withdrawal medications Neurontin for augmentation
--- NOTE | 2018-09-11 13:09 | RAD ---
Date of service: 09/11/2018 HISTORY: Transfer to another facility COMPARISON: No prior. TECHNIQUE: Chest PA and lateral views FINDINGS: LUNGS: No active pulmonary disease. PLEURA: No significant pleural effusion identified. No pneumothorax apparent. CARDIOVASCULAR: No aortic atherosclerotic calcification present. Normal cardiac size. No pulmonary vascular congestion. OSSEOUS STRUCTURES: No significant abnormalities. VISUALIZED UPPER ABDOMEN: Normal. OTHER FINDINGS: None. IMPRESSION: No active disease.
[2018-09-16 06:39] VITALS: BP 118/70; PULSE 82; RESP 18; TEMP 97.6
--- NOTE | 2018-09-16 09:41 | PCM.PYCHDC ---
Mental Status Examination - Mental Status Examination Orientation: Person, Place, Situation, Time Memory: Intact Mood: Neutral Affect: Constricted Speech: Soft Attention: WNL Concentration: WNL Association: WNL Fund of Knowledge: WNL Formal Thought Process: No Impairment Description of patient's judgement and insight: good, fair Psychotic Thoughts and Behaviors: denies any AVH Suicidal Ideation: No Current Homicidal Ideation?: No Discharge Summary - Discharge Note Reason for Hospitalization: Pt is a 43 years old male, who is currently unemployed and lives alone, presented to [facility] with depressed and and suicidal ideation. Patient reports history of multiple inpatient psychiatric hospitalizations, however he denies any history of follow-up with any psychiatrist. He also reports history of few detox and rehab in the past. Patient reports that soon after discharge from detox he stopped taking medications and relapsed with heroin. He reports of injecting more than 10 bags of heroin along with cocaine daily, last abuse was yesterday. Patient reports that yesterday he abused more than 10 bags, became increasingly depressed and suicidal and so he came to the hospital to get help. Pt reported that he is suicidal because his drug use has caused him to be disconnected with his family, loss of his job and his apt. Patient reports depressed mood, feelings of hopelessness and helplessness. He also reports poor sleep and anhedonia. He reports at times irritability and agitation. He reports withdrawal symptoms from heroin including nausea, vomiting, cramps, joint pains, headaches, anxiety and sweating. He denies any auditory or visual hallucinations or any paranoia. Consultations:: List each consultation separately and include: 1. Reason for request. 2. Findings. 3. Follow-up Summary of Hospital Course include:: 1. Description of specific treatment plan utilized for patients during their course of treatmen. 2. Summarize the time- course for resolution of acute symptoms and/or regressed behaviors. 3. Describe issues identified and worked on during hospitalization. 4. Describe medication utilized. 5. Describe medical problems identified and treated. 6. Reassessment of suicide risk Summary of Hospital Course: Pt is a 43 years old male, who is currently unemployed and lives alone, presented to [facility] with depressed and and suicidal ideation. Patient reports history of multiple inpatient psychiatric hospitalizations, however he denies any history of follow-up with any psychiatrist. He also reports history of few detox and rehab in the past. Patient reports that soon after discharge from detox he stopped taking medications and relapsed with heroin. He reports of injecting more than 10 bags of heroin along with cocaine daily, last abuse was yesterday. Patient reports that yesterday he abused more than 10 bags, became increasingly depressed and suicidal and so he came to the hospital to get help. Pt reported that he is suicidal because his drug use has caused him to be disconnected with his family, loss of his job and his apt. Patient reports depressed mood, feelings of hopelessness and helplessness. He also reports poor sleep and anhedonia. He reports at times irritability and agitation. He reports withdrawal symptoms from heroin including nausea, vomiting, cramps, joint pains, headaches, anxiety and sweating. He denies any auditory or visual hallucinations or any paranoia. Past medical history None reported - Diagnosis (1) Major depressive disorder, recurrent severe without psychotic features Current Visit: No Status: Acute (2) Opioid use disorder, severe, dependence Current Visit: No Status: Acute - Final Diagnosis (DSM 5) Condition upon Discharge: STABLE DSM 5: Major depressive disorder recurrent severe without psychotic features Opioid use disorder severe Opiate withdrawal Cocaine use disorder severe Disposition: HOME/ ROUTINE Follow-up Treatment Plan: Major depressive disorder recurrent severe without psychotic features Opioid use disorder severe Opiate withdrawal Cocaine use disorder severe CBT Psychoeducation Supportive therapy and group therapy Methadone taper for heroin withdrawal Paxil for depression Trazodone for insomnia Hydroxyzine for anxiety Withdrawal medications Neurontin for augmentation Prescriptions/Medication Reconciliation: Escitalopram [Lexapro] 10 mg PO DAILY #30 tab Gabapentin [Neurontin] 300 mg PO BID #60 cap traZODone [Desyrel] 100 mg PO HS #30 tab - Smoking Cessation Smoking Cessation Medication prescribed: No - Antipsychotic Medications Pt discharged on 2 or more routine antipsychotic medications: No
== END 2018-09-16 10:40 | disposition home or self-care (01) | DRG 430 ==
LOC: C.ER 14:20 → C.5E 16:46
PROVIDERS: ADMIT Psychiatry & Neurology Psychiatry; ATTEND Psychiatry & Neurology Psychiatry
PROC: GZ56ZZZ Individual Psychotherapy, Supportive (ICD-10-PCS; principal; 2018-09-05)
DX: F33.2 Major depressive disorder, recurrent severe without psychotic features (principal); F11.23 Opioid dependence with withdrawal; F14.10 Cocaine abuse, uncomplicated; F15.10 Other stimulant abuse, uncomplicated; F41.9 Anxiety disorder, unspecified; G47.00 Insomnia, unspecified; I10 Essential (primary) hypertension; R45.851 Suicidal ideations